=== PATIENT | female | born 1990 | race Hispanic/Latino ===

== ENCOUNTER 2016-06-09 10:00 | Emergency (ER) | payer OTHER, SELFPAY ==
[~2016-06-09 10:00] MED LIST: IBUP600T26 PO; PRENCAP9 PO; PRIL20CA PO
[2016-06-09] MEDS ORDERED: ONDANSETRON 4MG/2ML VIAL (J2405) As Ordered ONE (10:36)
[2016-06-09] MEDS ORDERED: KETOROLAC 30 MG/ML VIAL (J1885) As Ordered ONE (10:36)
[2016-06-09 10:53] LABS: BASO # 0.1 K/mm3 (0.0-0.2); BASO % 0.8 % (0.0-1.0); EOS # 0.5 K/mm3 (0.0-0.50); EOS % 4.2 % (0.0-3.0); LARGE UNSTAINED CELL # 0.2 K/mm3 (0.0-0.4); LARGE UNSTAINED CELL % 1.6 % (0.0-4.0); LYMPH % 24.8 % (24.0-44.0); MEAN CORPUSCULAR HEMOGLOBIN 25.9 pg (27.0-33.0); MEAN CORPUSCULAR HGB CONC 32.3 g/dl (32.0-36.5); MEAN CORPUSCULAR VOLUME 80.3 fl (80.0-96.0); MONO # 0.7 K/mm3 (0.0-0.8); MONO % 5.8 % (0.0-5.0); NEUTROPHILS % 62.7 % (36.0-66.0); PLATELET COUNT, AUTOMATED 302 k/mm3 (150-450); RED CELL DISTRIBUTION WIDTH 14.3 % (11.5-14.5); WHITE BLOOD COUNT 11.2 K/mm3 (4.0-10.0)
[2016-06-09 11:10] LABS: ALBUMIN 3.8 GM/DL (3.2-5.2); ALBUMIN/GLOBULIN RATIO 0.88 (1.00-1.93); ALKALINE PHOSPHATASE 91 U/L (45-117); ALT/SGPT 23 U/L (12-78); AMYLASE 52 U/L (25-115); ANION GAP 10 MEQ/L (8-16); AST/SGOT 12 U/L (15-37); BILIRUBIN,DIRECT < 0.1 MG/DL (0.0-0.2); BILIRUBIN,TOTAL 0.3 MG/DL (0.2-1.0); BLOOD UREA NITROGEN 12 MG/DL (7-18); CALCIUM LEVEL 8.9 MG/DL (8.5-10.1); CARBON DIOXIDE LEVEL 24 MEQ/L (21-32); CHLORIDE LEVEL 109 MEQ/L (98-107); CREATININE FOR GFR 0.85 MG/DL (0.55-1.02); GLOMERULAR FILTRATION RATE > 60.0 (>60); GLUCOSE, FASTING 92 MG/DL (70-105); SODIUM LEVEL 143 MEQ/L (136-145); TOTAL PROTEIN 8.1 GM/DL (6.4-8.2)
--- NOTE | 2016-06-09 11:16 | REP ---
CT ABDOMEN AND PELVIS WITHOUT IV OR ORAL CONTRAST: Renal stone protocol. HISTORY: Bilateral flank pain. FINDINGS: Digital preliminary data warehousing architect radiograph demonstrates an unremarkable bowel gas pattern. Umbilical jewelry is seen. Bilateral tubal ligation clamps are seen. Axial CT images demonstrate that the lung bases are clear. The liver and the spleen are normal in size and homogeneous in texture. Opaque gallstones are seen filling the lumen of the otherwise contracted appearing gallbladder. There is a small accessory splenule. No adrenal lesion is seen. No pancreatic abnormality is observed. Normal caliber aorta is seen. There is a retroaortic left renal vein. No hydronephrosis is seen. No intrarenal calculus is observed. A normal appendix is seen. Small and large intestinal bowel loops are unremarkable. The right tube ligation clamp appears in the right adnexa. The other tubal ligation clamp is seen directly anterior to the body of the uterus, between it and the urinary bladder. This has apparently migrated. No abdominal wall defect is seen. No bony destructive lesion is appreciated. No adnexal mass or pelvic mass is seen. No adenopathy noted. IMPRESSION: No urinary tract calculus or hydronephrosis. Cholelithiasis. Small contracted gallbladder filled with stones. Normal appendix. Status post bilateral tubal ligation. One of the two ligation clamps has migrated. Signed by Endy Diop MD 06/09/2016 11:21 A
--- NOTE | 2016-06-09 11:53 | EDDOCDS ---
Nurse's Notes [facility] Name: Elda Hector Age: 26 yrs Sex: Female : 1990 Arrival Date: 06/09/2016 Time: 10:00 Bed I4 / M4 Private MD: Diagnosis: Hematuria-Most likely passed kidney stone;Cholelithiasis;Lower abdominal pain, unspecified-with Flank Pain Presentation: 06/09 10:09 Presenting complaint: Patient states: lower back pain with radiation into rt lower [facility] abdomen for months, got worse 4 days ago. Acute neurological deficits are not present. Mechanism of Injury: No Mechanism of Injury. Adult Sepsis Screening: The patient does not have new or worsening altered mentation. Patient's respiratory rate is less than 22. Systolic blood pressure is greater than 100. Patient has a qSOFA score of 0- Negative Sepsis Screen. Suicide/Homicide risk assessment- the patient denies having any suicidal and/or homicidal ideations and does not present with any other emotional, behavioral or mental health complaints. Status: Patient is not a protective service specialist or dependent. Transition of care: patient was not received from another setting of care. 10:09 Acuity: DANY Level 3 [facility] 10:09 Method Of Arrival: Walkin/Carried/Asstd [facility] Triage Assessment: 10:11 General: Appears uncomfortable, well nourished, well groomed, Behavior is appropriate [facility] for age, pleasant. Pain: Location: low back area Pain currently is 7 out of 10 on a pain scale. Pain radiates to right lower quadrant. HIV screening NA for this visit Offered previously. Neurological: Level of Consciousness is awake, alert, Oriented to person, place, time. Respiratory: Airway is patent Respiratory effort is even, unlabored, Respiratory pattern is regular, symmetrical. GI: Reports lower abdominal pain, nausea, Pain is 7 out of 10 on a pain scale. : Reports pain in bilateral in lower back Pain is 7 out of 10 on a pain scale. Denies discharge, vaginal bleeding. Derm: Skin is pink, warm & dry. Musculoskeletal: No deficits noted. 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 none - PMHx: Depression; - PSHx: Breast Reduction; ; Tubal ligation; - Social history: Smoking status: Patient uses tobacco products, light tobacco smoker. No barriers to communication noted, The patient speaks fluent Luxembourgish. - Family history: Not pertinent. - : The pt / caregiver states he / she is not on anticoagulants. Home medication list is obtained from the patient. - Exposure Risk Screening:: None identified. Screenin:41 Screening information is obtained from the patient. Primary language is Luxembourgish. Fall jam1 risk: No risks identified. Assistance ADL's: requires no assistance with activities of daily living. Abuse/DV Screen: The patient / caregiver reports he/she is: not in a situation that causes fear, pain or injury. Nutritional screening: No deficits noted. Exposure Risk Screening: None identified. Advance Directives: Currently, there is no health care proxy. There is no active DNR order. There is no living will. There is no Power of Typesetting Machine Operator/Tender. Advance directive information has not previously been placed in an [facility] medical record. Further advance directive information is declined. home support is adequate. Assessment: 10:45 General: Appears in no apparent distress, Behavior is appropriate for age, cooperative, jo3 pleasant. Neurological: Level of Consciousness is awake, alert, Oriented to person, place, time. Cardiovascular: No deficits noted. Respiratory: Airway is patent Respiratory effort is even, unlabored, Respiratory pattern is. GI: Abdomen is obese, Bowel sounds present X 4 quads. Abd is soft and non tender X 4 quads. : Reports SUSHILA flank pain. 11:44 Reassessment: Patient appears in no apparent distress at this time. Patient states jo3 feeling better. Patient states symptoms have improved. General: Behavior is appropriate for age, cooperative, pleasant. Cardiovascular: No deficits noted. Respiratory: Airway is patent Respiratory effort is even, unlabored. Derm: Skin is pink, warm & dry. Vital Signs: 10:03 BP 144 / 87; Pulse 95; Resp 17; Temp 96.6(O); Pulse Ox 100% on R/A; Weight 104.33 kg lr2 (R); Height 5 ft. 1 in. (154.94 cm) (R); Pain 8/10; 11:38 BP 123 / 65; Pulse 68; Resp 18; Temp 97.2; Pulse Ox 99% ; Pain 0/10; jam1 10:03 Body Mass Index 43.46 (104.33 kg, 154.94 cm) lr2 Vitals: 10:11 Log In Time: June 09, 2016 at 10:00. [facility] ED Course: 10:02 Patient visited by Jaye Sandoval. lr2 10:02 Patient moved to Waiting lr2 10:10 Patient moved to Pre RCE lr2 10:11 Triage Initiated [facility] 10:13 Patient moved to Triage 1 [facility] 10:17 Hermelinda Hernandez PA-C is PHCP. ef1 10:17 Dominique Edouard MD is Attending Physician. ef1 10:18 Patient visited by Hremelinda Hernandez PA-C. ef1 10:29 Patient moved to I4 / M4 srm 10:35 Pt greeted and oriented to ED. Patient advised of names of staff involved in care, jam1 location of call nicholson, wait times and NPO status. Patient has correct armband on for positive identification. Placed in gown. Bed in low position. Call light in reach. Side rails up X 1. Door closed. 10:40 Inserted saline lock: 18 gauge in right antecubital area. Labs drawn. (by ED staff). jo3 Sent per order to lab. 10:44 Amylase Sent. jo3 10:44 Basic Metabolic Profile Sent. jo3 10:44 CBC with Diff Sent. jo3 10:44 Lipase Sent. jo3 10:44 Liver Profile Sent. jo3 10:44 Urinalysis Sent. jo3 10:44 Urine Culture Sent. jo3 10:54 Patient visited by Hermelinda Hernandez PA-C. ef1 11:21 CT ABD & PELVIS: No Contrast Returned. EDMS 11:25 [facility] Payment Agreement was scanned into [employer] and attached to record. lg 11:31 Patient visited by Hermelinda Henrandez PA-C. ef1 11:39 [facility] is Referral Physician. ef1 11:39 [facility] is Referral Physician. ef1 11:39 [facility] DO is Referral Physician. ef1 11:51 The patient / caregiver is instructed regarding the plan of care and ED course. jo3 11:51 Discontinued IV lock intact, bleeding controlled, pressure dressing applied, No jo3 redness/swelling at site. No procedures done that require assistance. Administered Medications: 10:42 Drug: NS 0.9% 1000 ml [sodium chloride 0.9 % injection solution] Route: IV; Rate: pml bolus; Site: right antecubital; 10:42 Drug: Ondansetron 4 mg [ondansetron HCl 2 mg/mL intravenous solution (2 mL)] Route: pml IVP; Site: right antecubital; 10:42 Drug: ketorolac 30 mg [ketorolac 30 mg/mL (1 mL) injection solution (1 mL)] Route: IVP; pml Site: right antecubital; Point of Care Testing: Urine : 10:43 hCG Reading: Negative; Control Reading: Positive; pml Ranges: Order Results: Lab Order: Amylase; SPEC'M 06/09/16 10:40 Test: AMYLASE; Value: 52; Range: 25-115; Units: U/L; Status: F Lab Order: Basic Metabolic Profile; SPEC'M 06/09/16 10:40 Test: GLUCOSE, FASTING; Value: 92; Range: 70-105; Units: MG/DL; Status: F Test: BLOOD UREA NITROGEN; Value: 12; Range: 7-18; Units: MG/DL; Status: F Test: CREATININE FOR GFR; Value: 0.85; Range: 0.55-1.02; Units: MG/DL; Status: F Test: GLOMERULAR FILTRATION RATE; Value: > 60.0; Range: >60; Status: F Test: SODIUM LEVEL; Value: 143; Range: 136-145; Units: MEQ/L; Status: F Test: POTASSIUM SERUM; Value: 4.0; Range: 3.5-5.1; Units: MEQ/L; Status: F Test: CHLORIDE LEVEL; Value: 109; Range: 98-107; Abnormal: Above high normal; Units: MEQ/L; Status: F Test: CARBON DIOXIDE LEVEL; Value: 24; Range: 21-32; Units: MEQ/L; Status: F Test: ANION GAP; Value: 10; Range: 8-16; Units: MEQ/L; Status: F Test: CALCIUM LEVEL; Value: 8.9; Range: 8.5-10.1; Units: MG/DL; Status: F Test Note: ; Units are mL/min/1.73 m2 Chronic Kidney Disease Staging per NKF: Stage I & II GFR >=60 Normal to Mildly Decreased Stage III GFR 30-59 Moderately Decreased Stage IV GFR 15-29 Severely Decreased Stage V GFR <15 Very Little GFR Left ESRD GFR <15 on PERINATAL SOCIAL WORKER Lab Order: CBC with Diff; SPEC'M 06/09/16 10:40 Test: WHITE BLOOD COUNT; Value: 11.2; Range: 4.0-10.0; Abnormal: Above high normal; Units: K/mm3; Status: F Test: RED BLOOD COUNT; Value: 4.50; Range: 4.00-5.40; Units: M/mm3; Status: F Test: HEMOGLOBIN; Value: 11.7; Range: 12.0-16.0; Abnormal: Below low normal; Units: g/dl; Status: F Test: HEMATOCRIT; Value: 36.1; Range: 36.0-47.0; Units: %; Status: F Test: MEAN CORPUSCULAR VOLUME; Value: 80.3; Range: 80.0-96.0; Units: fl; Status: F Test: MEAN CORPUSCULAR HEMOGLOBIN; Value: 25.9; Range: 27.0-33.0; Abnormal: Below low normal; Units: pg; Status: F Test: MEAN CORPUSCULAR HGB CONC; Value: 32.3; Range: 32.0-36.5; Units: g/dl; Status: F Test: RED CELL DISTRIBUTION WIDTH; Value: 14.3; Range: 11.5-14.5; Units: %; Status: F Test: PLATELET COUNT, AUTOMATED; Value: 302; Range: 150-450; Units: k/mm3; Status: F Test: NEUTROPHILS %; Value: 62.7; Range: 36.0-66.0; Units: %; Status: F Test: LYMPH %; Value: 24.8; Range: 24.0-44.0; Units: %; Status: F Test: MONO %; Value: 5.8; Range: 0.0-5.0; Abnormal: Above high normal; Units: %; Status: F Test: EOS %; Value: 4.2; Range: 0.0-3.0; Abnormal: Above high normal; Units: %; Status: F Test: BASO %; Value: 0.8; Range: 0.0-1.0; Units: %; Status: F Test: LARGE UNSTAINED CELL %; Value: 1.6; Range: 0.0-4.0; Units: %; Status: F Test: NEUTROPHILS #; Value: 7.0; Range: 1.8-7.7; Units: K/mm3; Status: F Test: LYMPH #; Value: 3.0; Range: 1.5-6.5; Units: K/mm3; Status: F Test: MONO #; Value: 0.7; Range: 0.0-0.8; Units: K/mm3; Status: F Test: EOS #; Value: 0.5; Range: 0.0-0.50; Units: K/mm3; Status: F Test: BASO #; Value: 0.1; Range: 0.0-0.2; Units: K/mm3; Status: F Test: LARGE UNSTAINED CELL #; Value: 0.2; Range: 0.0-0.4; Units: K/mm3; Status: F Lab Order: Lipase; SPEC'M 06/09/16 10:40 Test: LIPASE; Value: 206; Range: 73-393; Units: U/L; Status: F Lab Order: Liver Profile; SPEC'M 06/09/16 10:40 Test: AST/SGOT; Value: 12; Range: 15-37; Abnormal: Below low normal; Units: U/L; Status: F Test: ALT/SGPT; Value: 23; Range: 12-78; Units: U/L; Status: F Test: ALKALINE PHOSPHATASE; Value: 91; Range: 45-117; Units: U/L; Status: F Test: BILIRUBIN,TOTAL; Value: 0.3; Range: 0.2-1.0; Units: MG/DL; Status: F Test: BILIRUBIN,DIRECT; Value: < 0.1; Range: 0.0-0.2; Units: MG/DL; Status: F Test: TOTAL PROTEIN; Value: 8.1; Range: 6.4-8.2; Units: GM/DL; Status: F Test: ALBUMIN; Value: 3.8; Range: 3.2-5.2; Units: GM/DL; Status: F Test: ALBUMIN/GLOBULIN RATIO; Value: 0.88; Range: 1.00-1.93; Abnormal: Below low normal; Status: F Lab Order: Urinalysis; SPEC'M 06/09/16 10:40 Test: APPEARANCE, URINE; Value: CLOUDY; Range: CLEAR; Abnormal: Above high normal; Status: F Test: COLOR, URINE; Value: YELLOW; Range: YELLOW; Status: F Test: PH,URINE; Value: 5.0; Range: 5.0-9.0; Units: UNITS; Status: F Test: SPECIFIC GRAVITY URINE AUTO; Value: 1.024; Range: 1.002-1.035; Status: F Test: PROTEIN, URINE AUTO; Value: NEGATIVE; Range: NEGATIVE; Units: mg/dL; Status: F Test: GLUCOSE, URINE (UA) AUTO; Value: NEGATIVE; Range: NEGATIVE; Units: mg/dL; Status: F Test: KETONE, URINE AUTO; Value: NEGATIVE; Range: NEGATIVE; Units: mg/dL; Status: F Test: UROBILINOGEN, URINE AUTO; Value: 0.2; Range: 0.0-2.0; Units: mg/dL; Status: F Test: BILIRUBIN, URINE AUTO; Value: NEGATIVE; Range: NEGATIVE; Status: F Test: NITRITE, URINE AUTO; Value: NEGATIVE; Range: NEGATIVE; Status: F Test: LEUKOCYTE ESTERASE, URINE AUTO; Value: NEGATIVE; Range: NEGATIVE; Status: F Test: BLOOD, URINE BLOOD; Value: NEGATIVE; Range: NEGATIVE; Status: F Test: WBC, URINE AUTO; Value: 2; Range: 0-3; Units: /HPF; Status: F Test: RBC, URINE AUTO; Value: 4; Range: 0-3; Abnormal: Above high normal; Units: /HPF; Status: F Test: BACTERIA, URINE AUTO; Value: NEGATIVE; Range: NEGATIVE; Status: F Test: SQUAMOUS EPITHELIAL CELL UR AU; Value: 17; Range: 0-6; Units: /HPF; Status: F Test: MUCUS, URINE; Value: SMALL; Range: NEGATIVE; Status: F Test: HYALINE CAST, URINE AUTO; Value: 0; Range: 0-1; Units: /LPF; Status: F Radiology Order: CT ABD & PELVIS: No Contrast Test: CT ABD & PELVIS: No Contrast REASON FOR EXAMINATION: Renal colic; CT ABDOMEN AND PELVIS WITHOUT IV OR ORAL CONTRAST: Renal stone protocol.; ; HISTORY: Bilateral flank pain.; ; FINDINGS: Digital preliminary parts cleaner radiograph demonstrates an unremarkable; bowel gas pattern. Umbilical jewelry is seen. Bilateral tubal ligation clamps; are seen.; ; Axial CT images demonstrate that the lung bases are clear. The liver and the; spleen are normal in size and homogeneous in texture. Opaque gallstones are seen; filling the lumen of the otherwise contracted appearing gallbladder. There is a; small accessory splenule. No adrenal lesion is seen. No pancreatic abnormality; is observed. Normal caliber aorta is seen. There is a retroaortic left renal; vein. No hydronephrosis is seen. No intrarenal calculus is observed. A normal; appendix is seen. Small and large intestinal bowel loops are unremarkable. The; right tube ligation clamp appears in the right adnexa. The other tubal ligation; clamp is seen directly anterior to the body of the uterus, between it and the; urinary bladder. This has apparently migrated. No abdominal wall defect is; seen. No bony destructive lesion is appreciated. No adnexal mass or pelvic mass; is seen. No adenopathy noted.; ; IMPRESSION:; No urinary tract calculus or hydronephrosis. Cholelithiasis. Small contracted; gallbladder filled with stones. Normal appendix. Status post bilateral tubal; ligation. One of the two ligation clamps has migrated.; ; ; ; Unreviewed; Outcome: 11:39 Discharge ordered by Provider. ef1 11:52 Discharge Assessment: Patient awake, alert and oriented x 3. No cognitive and/or jo3 functional deficits noted. Patient verbalized understanding of disposition instructions. patient administered narcotics - no. The following High Risk Discharge criteria are identified: None. Discharged to home ambulatory. Condition: stable Condition: improved. Discharge instructions given to patient, Instructed on discharge instructions, follow up and referral plans. medication usage, Demonstrated understanding of instructions, medications, Pt was receptive of discharge instructions/ teaching. Prescriptions given X 3. CT Study completed. Property sent home with patient. 11:52 Patient left the ED. jo3 Signatures: Dispatcher [employer] EDMS Taty De La Cruz RN RN kpj Michelson, Staci, RN RN srm Murphy, Jane, KRZYSZTOF SOIL CONSERVATION AIDE jam1 Yas Hong, Reg Reg lg Leatha Varela RN RN jo3 Hermelinda Hernandez, PA-C PA-C ef1 Henry,Asia,RN RN pml Ross, Jaye lr2 MTDD
--- NOTE | 2016-06-09 11:53 | EDDOCDS ---
Physician Documentation [facility] Name: Elda Hector Age: 26 yrs Sex: Female : 1990 Arrival Date: 06/09/2016 Time: 10:00 Bed I4 / M4 Private MD: Disposition: 06/09/16 11:39 Discharged to Home/Self Care. Impression: Hematuria - Most likely passed kidney stone, Cholelithiasis, Lower abdominal pain, unspecified - with Flank Pain. - Condition is Stable. - Discharge Instructions: Hematuria, Adult, Kidney Stones, [id number], Cholelithiasis, Efio-[id number], Abdominal Pain, Adult, Kxox-[id number], Flank Pain, [id number]-[id number]. - Prescriptions for Flomax 0.4 mg Oral Capsule, Sust. Release 24 hr - take 1 capsule by ORAL route once daily 1/2 hour following the same meal each day; 30 capsule. ZOFRAN ODT 4 mg - dissolve 1 tablet by ORAL route 4 times per day As needed do not chew, do not swallow whole; 10 tablet. ketorolac 10 mg Oral Tablet - take 1 tablet by ORAL route 3 times per day As needed MDD- 30mg. Up to 5 days total use.; 15 tablet. - Medication Reconciliation, Local Pharmacy Hours, Referral List Call for Appointment form. - [facility] ; When: 1 - 2 days; Reason: Recheck today's complaints, Continuance of care. Follow up: [facility]; When: Call to arrange an appointment; Reason: Further diagnostic work-up, Recheck today's complaints, Continuance of care. Follow up: [facility]; When: Call to arrange an appointment; Reason: Further diagnostic work-up, Recheck today's complaints, Continuance of care. Follow up: Emergency Department; Reason: Worsening of conditions. - Problem is new. - Symptoms have improved. Historical: - Allergies: Depakote (Rash); - Home Meds: 1. none - PMHx: Depression; - PSHx: Breast Reduction; ; Tubal ligation; - Social history: Smoking status: Patient uses tobacco products, light tobacco smoker. No barriers to communication noted, The patient speaks fluent Romansh. - Family history: Not pertinent. - : The pt / caregiver states he / she is not on anticoagulants. Home medication list is obtained from the patient. - Exposure Risk Screening:: None identified. LAUNCHMAN: 06/09 10:11 LMP 05/20/2016 [facility] Vital Signs: 10:03 BP 144 / 87; Pulse 95; Resp 17; Temp 96.6(O); Pulse Ox 100% on R/A; Weight 104.33 kg / lr2 230.01 lbs (R); Height 5 ft. 1 in. (154.94 cm) (R); Pain 8/10; 11:38 BP 123 / 65; Pulse 68; Resp 18; Temp 97.2; Pulse Ox 99% ; Pain 0/10; jam1 10:03 Body Mass Index 43.46 (104.33 kg, 154.94 cm) lr2 MDM: 10:25 NS 0.9% 1000 ml IV at bolus once ordered. ef1 10:25 Ondansetron 4 mg IVP once ordered. ef1 10:25 ketorolac 30 mg IVP once ordered. ef1 10:25 IV Saline Lock ordered. ef1 10:25 Undress patient appropriately for examination ordered. ef1 10:26 Amylase Ordered. EDMS 10:26 Basic Metabolic Profile Ordered. EDMS 10:26 CBC with Diff Ordered. EDMS 10:26 Lipase Ordered. EDMS 10:26 Liver Profile Ordered. EDMS 10:26 Urinalysis Ordered. EDMS 10:26 Urine Culture Ordered. EDMS 10:26 CT ABD & PELVIS: No Contrast Ordered. EDMS 10:26 NOTHING BY MOUTH+DIET ordered. EDMS 10:29 Financial registration complete. lg 10:37 UCG by Nursing ordered. ef1 11:25 [id number] Payment Agreement was scanned into [employer] and attached to record. lg 11:33 Basic Metabolic Profile Reviewed. ef1 11:33 CBC with Diff Reviewed. ef1 11:33 Liver Profile Reviewed. ef1 11:33 Urinalysis Reviewed. ef1 11:33 Amylase Reviewed. ef1 11:33 Lipase Reviewed. ef1 11:33 CT ABD & PELVIS: No Contrast Reviewed. ef1 Point of Care Testing: Urine : 10:43 hCG Reading: Negative; Control Reading: Positive; pml Ranges: Administered Medications: 10:42 Drug: NS 0.9% 1000 ml [sodium chloride 0.9 % injection solution] Route: IV; Rate: pml bolus; Site: right antecubital; 10:42 Drug: Ondansetron 4 mg [ondansetron HCl 2 mg/mL intravenous solution (2 mL)] Route: pml IVP; Site: right antecubital; 10:42 Drug: ketorolac 30 mg [ketorolac 30 mg/mL (1 mL) injection solution (1 mL)] Route: IVP; pml Site: right antecubital; Signatures: Dispatcher [employer] EDTaty Gleason RN RN Yas Johnson, Ramon Reg Leatha MadridRN RN jo3 Hermelinda Hernandez, PA-C PA-C ef1 Asia Figueroa RN pml The chart was reviewed and I authenticate all verbal orders and agree with the evaluation and treatment provided.Attachments: 11:25 [facility] Payment Agreement lg MTDD
--- NOTE | 2016-06-11 12:54 | EDDOCDS ---
Physician Documentation [facility] Name: Elda Hector Age: 26 yrs Sex: Female : 1990 Arrival Date: 06/09/2016 Time: 10:00 Bed I4 / M4 Private MD: Disposition: 06/09/16 11:39 Discharged to Home/Self Care. Impression: Hematuria - Most likely passed kidney stone, Cholelithiasis, Lower abdominal pain, unspecified - with Flank Pain. - Condition is Stable. - Discharge Instructions: Hematuria, Adult, Kidney Stones, Uiif-[id number], Cholelithiasis, Sawz-ot-Klen, Abdominal Pain, Adult, Abzy-ky-Fxbk, Flank Pain, Yttl-sa-Fatp. - Prescriptions for Flomax 0.4 mg Oral Capsule, Sust. Release 24 hr - take 1 capsule by ORAL route once daily 1/2 hour following the same meal each day; 30 capsule. ZOFRAN ODT 4 mg - dissolve 1 tablet by ORAL route 4 times per day As needed do not chew, do not swallow whole; 10 tablet. ketorolac 10 mg Oral Tablet - take 1 tablet by ORAL route 3 times per day As needed MDD- 30mg. Up to 5 days total use.; 15 tablet. - Medication Reconciliation, Local Pharmacy Hours, Referral List Call for Appointment form. - [facility] ; When: 1 - 2 days; Reason: Recheck today's complaints, Continuance of care. Follow up: [facility]; When: Call to arrange an appointment; Reason: Further diagnostic work-up, Recheck today's complaints, Continuance of care. Follow up: [facility]; When: Call to arrange an appointment; Reason: Further diagnostic work-up, Recheck today's complaints, Continuance of care. Follow up: Emergency Department; Reason: Worsening of conditions. - Problem is new. - Symptoms have improved. Historical: - Allergies: Depakote (Rash); - Home Meds: 1. none - PMHx: Depression; - PSHx: Breast Reduction; ; Tubal ligation; - Social history: Smoking status: Patient uses tobacco products, light tobacco smoker. No barriers to communication noted, The patient speaks fluent Belarusian. - Family history: Not pertinent. - : The pt / caregiver states he / she is not on anticoagulants. Home medication list is obtained from the patient. - Exposure Risk Screening:: None identified. 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 1 in. (154.94 cm) (R); Pain 8/10; 11:10 Pain 0/10; jo3 11:38 BP 123 / 65; Pulse 68; Resp 18; Temp 97.2; Pulse Ox 99% ; Pain 0/10; jam1 10:03 Body Mass Index 43.46 (104.33 kg, 154.94 cm) lr2 MDM: 10:25 NS 0.9% 1000 ml IV at bolus once ordered. ef1 10:25 Ondansetron 4 mg IVP once ordered. ef1 10:25 ketorolac 30 mg IVP once ordered. ef1 10:25 IV Saline Lock ordered. ef1 10:25 Undress patient appropriately for examination ordered. ef1 10:26 Amylase Ordered. EDMS 10:26 Basic Metabolic Profile Ordered. EDMS 10:26 CBC with Diff Ordered. EDMS 10:26 Lipase Ordered. EDMS 10:26 Liver Profile Ordered. EDMS 10:26 Urinalysis Ordered. EDMS 10:26 Urine Culture Ordered. EDMS 10:26 CT ABD & PELVIS: No Contrast Ordered. EDMS 10:26 NOTHING BY MOUTH+DIET ordered. EDMS 10:29 Financial registration complete. lg 10:37 UCG by Nursing ordered. ef1 11:25 [facility] Payment Agreement was scanned into [employer] and attached to record. lg 11:33 Basic Metabolic Profile Reviewed. ef1 11:33 CBC with Diff Reviewed. ef1 11:33 Liver Profile Reviewed. ef1 11:33 Urinalysis Reviewed. ef1 11:33 Amylase Reviewed. ef1 11:33 Lipase Reviewed. ef1 11:33 CT ABD & PELVIS: No Contrast Reviewed. ef1 17:38 T-Sheet-- Draft Copy was scanned into [employer] and attached to record. klr Point of Care Testing: Urine : 10:43 hCG Reading: Negative; Control Reading: Positive; pml Ranges: Administered Medications: 10:42 Drug: NS 0.9% 1000 ml [sodium chloride 0.9 % injection solution] Route: IV; Rate: pml bolus; Site: right antecubital; 11:55 Follow up: IV Status: Completed infusion jo3 10:42 Drug: Ondansetron 4 mg [ondansetron HCl 2 mg/mL intravenous solution (2 mL)] Route: pml IVP; Site: right antecubital; 10:42 Drug: ketorolac 30 mg [ketorolac 30 mg/mL (1 mL) injection solution (1 mL)] Route: IVP; pml Site: right antecubital; 11:10 Follow up: Pain 0/10 Adult jo3 Signatures: Dispatcher [employer] EDTaty Gleason RN RN Yas Johnson, Ramon Reg Leatha Madrid RN RN jo3 Hermelinda Hernandez, PAZulmaC PAZulmaC Yany Alonzo Paulina RN pml The chart was reviewed and I authenticate all verbal orders and agree with the evaluation and treatment provided.Attachments: 11:25 [facility] Payment Agreement lg 17:38 T-Sheet-- Draft Copy klr Chart Complete [facility]
--- NOTE | 2016-06-11 12:54 | EDDOCDS ---
Nurse's Notes [facility] Name: Elda Hector Age: 26 yrs Sex: Female : 1990 Arrival Date: 06/09/2016 Time: 10:00 Bed I4 / M4 Private MD: Diagnosis: Hematuria-Most likely passed kidney stone;Cholelithiasis;Lower abdominal pain, unspecified-with Flank Pain Presentation: 06/09 10:09 Presenting complaint: Patient states: lower back pain with radiation into rt lower [facility] abdomen for months, got worse 4 days ago. Acute neurological deficits are not present. Mechanism of Injury: No Mechanism of Injury. Adult Sepsis Screening: The patient does not have new or worsening altered mentation. Patient's respiratory rate is less than 22. Systolic blood pressure is greater than 100. Patient has a qSOFA score of 0- Negative Sepsis Screen. Suicide/Homicide risk assessment- the patient denies having any suicidal and/or homicidal ideations and does not present with any other emotional, behavioral or mental health complaints. Status: Patient is not a human service coordinator or dependent. Transition of care: patient was not received from another setting of care. 10:09 Acuity: DANY Level 3 [facility] 10:09 Method Of Arrival: Walkin/Carried/Asstd [facility] Triage Assessment: 10:11 General: Appears uncomfortable, well nourished, well groomed, Behavior is appropriate [facility] for age, pleasant. Pain: Location: low back area Pain currently is 7 out of 10 on a pain scale. Pain radiates to right lower quadrant. HIV screening NA for this visit Offered previously. Neurological: Level of Consciousness is awake, alert, Oriented to person, place, time. Respiratory: Airway is patent Respiratory effort is even, unlabored, Respiratory pattern is regular, symmetrical. GI: Reports lower abdominal pain, nausea, Pain is 7 out of 10 on a pain scale. : Reports pain in bilateral in lower back Pain is 7 out of 10 on a pain scale. Denies discharge, vaginal bleeding. Derm: Skin is pink, warm & dry. Musculoskeletal: No deficits noted. 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 none - PMHx: Depression; - PSHx: Breast Reduction; ; Tubal ligation; - Social history: Smoking status: Patient uses tobacco products, light tobacco smoker. No barriers to communication noted, The patient speaks fluent Belarusian. - Family history: Not pertinent. - : The pt / caregiver states he / she is not on anticoagulants. Home medication list is obtained from the patient. - Exposure Risk Screening:: None identified. Screenin:41 Screening information is obtained from the patient. Primary language is Belarusian. Fall jam1 risk: No risks identified. Assistance ADL's: requires no assistance with activities of daily living. Abuse/DV Screen: The patient / caregiver reports he/she is: not in a situation that causes fear, pain or injury. Nutritional screening: No deficits noted. Exposure Risk Screening: None identified. Advance Directives: Currently, there is no health care proxy. There is no active DNR order. There is no living will. There is no Power of Adjuster Leader. Advance directive information has not previously been placed in an [facility] medical record. Further advance directive information is declined. home support is adequate. Assessment: 10:45 General: Appears in no apparent distress, Behavior is appropriate for age, cooperative, jo3 pleasant. Neurological: Level of Consciousness is awake, alert, Oriented to person, place, time. Cardiovascular: No deficits noted. Respiratory: Airway is patent Respiratory effort is even, unlabored, Respiratory pattern is. GI: Abdomen is obese, Bowel sounds present X 4 quads. Abd is soft and non tender X 4 quads. : Reports SUSHILA flank pain. 11:44 Reassessment: Patient appears in no apparent distress at this time. Patient states jo3 feeling better. Patient states symptoms have improved. General: Behavior is appropriate for age, cooperative, pleasant. Cardiovascular: No deficits noted. Respiratory: Airway is patent Respiratory effort is even, unlabored. Derm: Skin is pink, warm & dry. Vital Signs: 10:03 BP 144 / 87; Pulse 95; Resp 17; Temp 96.6(O); Pulse Ox 100% on R/A; Weight 104.33 kg lr2 (R); Height 5 ft. 1 in. (154.94 cm) (R); Pain 8/10; 11:10 Pain 0/10; jo3 11:38 BP 123 / 65; Pulse 68; Resp 18; Temp 97.2; Pulse Ox 99% ; Pain 0/10; jam1 10:03 Body Mass Index 43.46 (104.33 kg, 154.94 cm) lr2 Vitals: 10:11 Log In Time: June 09, 2016 at 10:00. [facility] ED Course: 10:02 Patient visited by Jaye Sandoval. lr2 10:02 Patient moved to Waiting lr2 10:10 Patient moved to Pre RCE lr2 10:11 Triage Initiated [facility] 10:13 Patient moved to Triage 1 [facility] 10:17 Hermelinda Hernandez PA-C is PHCP. ef1 10:17 Dominique Edouard MD is Attending Physician. ef1 10:18 Patient visited by Hermelinda Hernandez PA-C. ef1 10:29 Patient moved to I4 / M4 [facility] 10:35 Pt greeted and oriented to ED. Patient advised of names of staff involved in care, [facility] location of call nicholson, wait times and NPO status. Patient has correct armband on for positive identification. Placed in gown. Bed in low position. Call light in reach. Side rails up X 1. Door closed. 10:40 Inserted saline lock: 18 gauge in right antecubital area. Labs drawn. (by ED staff). jo3 Sent per order to lab. 10:44 Amylase Sent. jo3 10:44 Basic Metabolic Profile Sent. jo3 10:44 CBC with Diff Sent. jo3 10:44 Lipase Sent. jo3 10:44 Liver Profile Sent. jo3 10:44 Urinalysis Sent. jo3 10:44 Urine Culture Sent. jo3 10:54 Patient visited by Hermelinda Hernandez PA-C. ef1 11:21 CT ABD & PELVIS: No Contrast Returned. EDMS 11:25 [facility] Payment Agreement was scanned into [employer] and attached to record. lg 11:31 Patient visited by Hermelinda Hernandez PA-C. ef1 11:39 [facility] is Referral Physician. ef1 11:39 [facility] is Referral Physician. ef1 11:39 [facility] DO is Referral Physician. ef1 11:51 The patient / caregiver is instructed regarding the plan of care and ED course. jo3 11:51 Discontinued IV lock intact, bleeding controlled, pressure dressing applied, No jo3 redness/swelling at site. No procedures done that require assistance. 12:00 CT ABD & PELVIS: No Contrast Returned. EDMS 17:38 T-Sheet-- Draft Copy was scanned into [employer] and attached to record. klr Administered Medications: 10:42 Drug: NS 0.9% 1000 ml [sodium chloride 0.9 % injection solution] Route: IV; Rate: pml bolus; Site: right antecubital; 11:55 Follow up: IV Status: Completed infusion jo3 10:42 Drug: Ondansetron 4 mg [ondansetron HCl 2 mg/mL intravenous solution (2 mL)] Route: pml IVP; Site: right antecubital; 10:42 Drug: ketorolac 30 mg [ketorolac 30 mg/mL (1 mL) injection solution (1 mL)] Route: IVP; pml Site: right antecubital; 11:10 Follow up: Pain 0/10 Adult jo3 Point of Care Testing: Urine : 10:43 hCG Reading: Negative; Control Reading: Positive; pml Ranges: Order Results: Lab Order: Amylase; SPEC'M 06/09/16 10:40 Test: AMYLASE; Value: 52; Range: 25-115; Units: U/L; Status: F Lab Order: Basic Metabolic Profile; SPEC'M 06/09/16 10:40 Test: GLUCOSE, FASTING; Value: 92; Range: 70-105; Units: MG/DL; Status: F Test: BLOOD UREA NITROGEN; Value: 12; Range: 7-18; Units: MG/DL; Status: F Test: CREATININE FOR GFR; Value: 0.85; Range: 0.55-1.02; Units: MG/DL; Status: F Test: GLOMERULAR FILTRATION RATE; Value: > 60.0; Range: >60; Status: F Test: SODIUM LEVEL; Value: 143; Range: 136-145; Units: MEQ/L; Status: F Test: POTASSIUM SERUM; Value: 4.0; Range: 3.5-5.1; Units: MEQ/L; Status: F Test: CHLORIDE LEVEL; Value: 109; Range: 98-107; Abnormal: Above high normal; Units: MEQ/L; Status: F Test: CARBON DIOXIDE LEVEL; Value: 24; Range: 21-32; Units: MEQ/L; Status: F Test: ANION GAP; Value: 10; Range: 8-16; Units: MEQ/L; Status: F Test: CALCIUM LEVEL; Value: 8.9; Range: 8.5-10.1; Units: MG/DL; Status: F Test Note: ; Units are mL/min/1.73 m2 Chronic Kidney Disease Staging per NKF: Stage I & II GFR >=60 Normal to Mildly Decreased Stage III GFR 30-59 Moderately Decreased Stage IV GFR 15-29 Severely Decreased Stage V GFR <15 Very Little GFR Left ESRD GFR <15 on HELP DESK ADMINISTRATOR Lab Order: CBC with Diff; SPEC'M 06/09/16 10:40 Test: WHITE BLOOD COUNT; Value: 11.2; Range: 4.0-10.0; Abnormal: Above high normal; Units: K/mm3; Status: F Test: RED BLOOD COUNT; Value: 4.50; Range: 4.00-5.40; Units: M/mm3; Status: F Test: HEMOGLOBIN; Value: 11.7; Range: 12.0-16.0; Abnormal: Below low normal; Units: g/dl; Status: F Test: HEMATOCRIT; Value: 36.1; Range: 36.0-47.0; Units: %; Status: F Test: MEAN CORPUSCULAR VOLUME; Value: 80.3; Range: 80.0-96.0; Units: fl; Status: F Test: MEAN CORPUSCULAR HEMOGLOBIN; Value: 25.9; Range: 27.0-33.0; Abnormal: Below low normal; Units: pg; Status: F Test: MEAN CORPUSCULAR HGB CONC; Value: 32.3; Range: 32.0-36.5; Units: g/dl; Status: F Test: RED CELL DISTRIBUTION WIDTH; Value: 14.3; Range: 11.5-14.5; Units: %; Status: F Test: PLATELET COUNT, AUTOMATED; Value: 302; Range: 150-450; Units: k/mm3; Status: F Test: NEUTROPHILS %; Value: 62.7; Range: 36.0-66.0; Units: %; Status: F Test: LYMPH %; Value: 24.8; Range: 24.0-44.0; Units: %; Status: F Test: MONO %; Value: 5.8; Range: 0.0-5.0; Abnormal: Above high normal; Units: %; Status: F Test: EOS %; Value: 4.2; Range: 0.0-3.0; Abnormal: Above high normal; Units: %; Status: F Test: BASO %; Value: 0.8; Range: 0.0-1.0; Units: %; Status: F Test: LARGE UNSTAINED CELL %; Value: 1.6; Range: 0.0-4.0; Units: %; Status: F Test: NEUTROPHILS #; Value: 7.0; Range: 1.8-7.7; Units: K/mm3; Status: F Test: LYMPH #; Value: 3.0; Range: 1.5-6.5; Units: K/mm3; Status: F Test: MONO #; Value: 0.7; Range: 0.0-0.8; Units: K/mm3; Status: F Test: EOS #; Value: 0.5; Range: 0.0-0.50; Units: K/mm3; Status: F Test: BASO #; Value: 0.1; Range: 0.0-0.2; Units: K/mm3; Status: F Test: LARGE UNSTAINED CELL #; Value: 0.2; Range: 0.0-0.4; Units: K/mm3; Status: F Lab Order: Lipase; [facility] 06/09/16 10:40 Test: LIPASE; Value: 206; Range: 73-393; Units: U/L; Status: F Lab Order: Liver Profile; [facility] 06/09/16 10:40 Test: AST/SGOT; Value: 12; Range: 15-37; Abnormal: Below low normal; Units: U/L; Status: F Test: ALT/SGPT; Value: 23; Range: 12-78; Units: U/L; Status: F Test: ALKALINE PHOSPHATASE; Value: 91; Range: 45-117; Units: U/L; Status: F Test: BILIRUBIN,TOTAL; Value: 0.3; Range: 0.2-1.0; Units: MG/DL; Status: F Test: BILIRUBIN,DIRECT; Value: < 0.1; Range: 0.0-0.2; Units: MG/DL; Status: F Test: TOTAL PROTEIN; Value: 8.1; Range: 6.4-8.2; Units: GM/DL; Status: F Test: ALBUMIN; Value: 3.8; Range: 3.2-5.2; Units: GM/DL; Status: F Test: ALBUMIN/GLOBULIN RATIO; Value: 0.88; Range: 1.00-1.93; Abnormal: Below low normal; Status: F Lab Order: Urinalysis; SPEC'M 06/09/16 10:40 Test: APPEARANCE, URINE; Value: CLOUDY; Range: CLEAR; Abnormal: Above high normal; Status: F Test: COLOR, URINE; Value: YELLOW; Range: YELLOW; Status: F Test: PH,URINE; Value: 5.0; Range: 5.0-9.0; Units: UNITS; Status: F Test: SPECIFIC GRAVITY URINE AUTO; Value: 1.024; Range: 1.002-1.035; Status: F Test: PROTEIN, URINE AUTO; Value: NEGATIVE; Range: NEGATIVE; Units: mg/dL; Status: F Test: GLUCOSE, URINE (UA) AUTO; Value: NEGATIVE; Range: NEGATIVE; Units: mg/dL; Status: F Test: KETONE, URINE AUTO; Value: NEGATIVE; Range: NEGATIVE; Units: mg/dL; Status: F Test: UROBILINOGEN, URINE AUTO; Value: 0.2; Range: 0.0-2.0; Units: mg/dL; Status: F Test: BILIRUBIN, URINE AUTO; Value: NEGATIVE; Range: NEGATIVE; Status: F Test: NITRITE, URINE AUTO; Value: NEGATIVE; Range: NEGATIVE; Status: F Test: LEUKOCYTE ESTERASE, URINE AUTO; Value: NEGATIVE; Range: NEGATIVE; Status: F Test: BLOOD, URINE BLOOD; Value: NEGATIVE; Range: NEGATIVE; Status: F Test: WBC, URINE AUTO; Value: 2; Range: 0-3; Units: /HPF; Status: F Test: RBC, URINE AUTO; Value: 4; Range: 0-3; Abnormal: Above high normal; Units: /HPF; Status: F Test: BACTERIA, URINE AUTO; Value: NEGATIVE; Range: NEGATIVE; Status: F Test: SQUAMOUS EPITHELIAL CELL UR AU; Value: 17; Range: 0-6; Units: /HPF; Status: F Test: MUCUS, URINE; Value: SMALL; Range: NEGATIVE; Status: F Test: HYALINE CAST, URINE AUTO; Value: 0; Range: 0-1; Units: /LPF; Status: F Lab Order: Urine Culture; SPEC'M 06/09/16 10:40 Test: URINE CULTURE; Value: <EXTERNAL COMMENT eCWMed> FULL REPORT IN LAB NOTES (eCW and Medent).; Status: F Test: URINE CULTURE; Value: URINE CULTURE RESULT SPECIMEN APPEARS CONTAMINATED; Status: F Radiology Order: CT ABD & PELVIS: No Contrast Test: CT ABD & PELVIS: No Contrast REASON FOR EXAMINATION: Renal colic; CT ABDOMEN AND PELVIS WITHOUT IV OR ORAL CONTRAST: Renal stone protocol.; ; HISTORY: Bilateral flank pain.; ; FINDINGS: Digital preliminary assistant store manager operations radiograph demonstrates an unremarkable; bowel gas pattern. Umbilical jewelry is seen. Bilateral tubal ligation clamps; are seen.; ; Axial CT images demonstrate that the lung bases are clear. The liver and the; spleen are normal in size and homogeneous in texture. Opaque gallstones are seen; filling the lumen of the otherwise contracted appearing gallbladder. There is a; small accessory splenule. No adrenal lesion is seen. No pancreatic abnormality; is observed. Normal caliber aorta is seen. There is a retroaortic left renal; vein. No hydronephrosis is seen. No intrarenal calculus is observed. A normal; appendix is seen. Small and large intestinal bowel loops are unremarkable. The; right tube ligation clamp appears in the right adnexa. The other tubal ligation; clamp is seen directly anterior to the body of the uterus, between it and the; urinary bladder. This has apparently migrated. No abdominal wall defect is; seen. No bony destructive lesion is appreciated. No adnexal mass or pelvic mass; is seen. No adenopathy noted.; ; IMPRESSION:; ; No urinary tract calculus or hydronephrosis. Cholelithiasis. Small contracted; gallbladder filled with stones. Normal appendix. Status post bilateral tubal; ligation. One of the two ligation clamps has migrated.; ; ; Signed by; Endy Diop MD 06/09/2016 11:21 A; Outcome: 11:39 Discharge ordered by Provider. ef1 11:52 Discharge Assessment: Patient awake, alert and oriented x 3. No cognitive and/or jo3 functional deficits noted. Patient verbalized understanding of disposition instructions. patient administered narcotics - no. The following High Risk Discharge criteria are identified: None. Discharged to home ambulatory. Condition: stable Condition: improved. Discharge instructions given to patient, Instructed on discharge instructions, follow up and referral plans. medication usage, Demonstrated understanding of instructions, medications, Pt was receptive of discharge instructions/ teaching. Prescriptions given X 3. CT Study completed. Property sent home with patient. 11:52 Patient left the ED. jo3 Signatures: Dispatcher [employer] EDTaty Gleason RN RN Ammy Jain, RN RN Janee Diaz, FIELD TRAINING AGENT FIELD TRAINING AGENT jam1 Yas Hong, Reg Reg lg Leatha VarelaRN RN jo3 Hermelinda Hernandez, PA-C PA-C ef1 Asia FigueroaRN RN Yany Bhagat Laura lr2 Chart [facility]
--- NOTE | 2016-06-11 12:54 | EDDOCDS ---
Physician Documentation [facility] Name: Elda Hector Age: 26 yrs Sex: Female : 1990 Arrival Date: 06/09/2016 Time: 10:00 Bed I4 / M4 Private MD: Disposition: 06/09/16 11:39 Discharged to Home/Self Care. Impression: Hematuria - Most likely passed kidney stone, Cholelithiasis, Lower abdominal pain, unspecified - with Flank Pain. - Condition is Stable. - Discharge Instructions: Hematuria, Adult, Kidney Stones, Jgjg-jw-[id number], Cholelithiasis, Clem-pc-Pyis, Abdominal Pain, Adult, Vagr-yk-Xrgx, Flank Pain, [id number]-bz-[id number]. - Prescriptions for Flomax 0.4 mg Oral Capsule, Sust. Release 24 hr - take 1 capsule by ORAL route once daily 1/2 hour following the same meal each day; 30 capsule. ZOFRAN ODT 4 mg - dissolve 1 tablet by ORAL route 4 times per day As needed do not chew, do not swallow whole; 10 tablet. ketorolac 10 mg Oral Tablet - take 1 tablet by ORAL route 3 times per day As needed MDD- 30mg. Up to 5 days total use.; 15 tablet. - Medication Reconciliation, Local Pharmacy Hours, Referral List Call for Appointment form. - [facility] up: [facility] ; When: 1 - 2 days; Reason: Recheck today's complaints, Continuance of care. Follow up: [facility]; When: Call to arrange an appointment; Reason: Further diagnostic work-up, Recheck today's complaints, Continuance of care. Follow up: [facility]; When: Call to arrange an appointment; Reason: Further diagnostic work-up, Recheck today's complaints, Continuance of care. Follow up: Emergency Department; Reason: Worsening of conditions. - Problem is new. - Symptoms have improved. Historical: - Allergies: Depakote (Rash); - Home Meds: 1. none - PMHx: Depression; - PSHx: Breast Reduction; ; Tubal ligation; - Social history: Smoking status: Patient uses tobacco products, light tobacco smoker. No barriers to communication noted, The patient speaks fluent Faroese. - Family history: Not pertinent. - : The pt / caregiver states he / she is not on anticoagulants. Home medication list is obtained from the patient. - Exposure Risk Screening:: None identified. 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 1 in. (154.94 cm) (R); Pain 8/10; 11:10 Pain 0/10; jo3 11:38 BP 123 / 65; Pulse 68; Resp 18; Temp 97.2; Pulse Ox 99% ; Pain 0/10; jam1 10:03 Body Mass Index 43.46 (104.33 kg, 154.94 cm) lr2 MDM: 10:25 NS 0.9% 1000 ml IV at bolus once ordered. ef1 10:25 Ondansetron 4 mg IVP once ordered. ef1 10:25 ketorolac 30 mg IVP once ordered. ef1 10:25 IV Saline Lock ordered. ef1 10:25 Undress patient appropriately for examination ordered. ef1 10:26 Amylase Ordered. EDMS 10:26 Basic Metabolic Profile Ordered. EDMS 10:26 CBC with Diff Ordered. EDMS 10:26 Lipase Ordered. EDMS 10:26 Liver Profile Ordered. EDMS 10:26 Urinalysis Ordered. EDMS 10:26 Urine Culture Ordered. EDMS 10:26 CT ABD & PELVIS: No Contrast Ordered. EDMS 10:26 NOTHING BY MOUTH+DIET ordered. EDMS 10:29 Financial registration complete. lg 10:37 UCG by Nursing ordered. ef1 11:25 [facility] [place] Agreement was scanned into [employer] and attached to record. lg 11:33 Basic Metabolic Profile Reviewed. ef1 11:33 CBC with Diff Reviewed. ef1 11:33 Liver Profile Reviewed. ef1 11:33 Urinalysis Reviewed. ef1 11:33 Amylase Reviewed. ef1 11:33 Lipase Reviewed. ef1 11:33 CT ABD & PELVIS: No Contrast Reviewed. ef1 17:38 T-Sheet-- Draft Copy was scanned into [employer] and attached to record. klr Point of Care Testing: Urine : 10:43 hCG Reading: Negative; Control Reading: Positive; pml Ranges: Administered Medications: 10:42 Drug: NS 0.9% 1000 ml [sodium chloride 0.9 % injection solution] Route: IV; Rate: pml bolus; Site: right antecubital; 11:55 Follow up: IV Status: Completed infusion jo3 10:42 Drug: Ondansetron 4 mg [ondansetron HCl 2 mg/mL intravenous solution (2 mL)] Route: pml IVP; Site: right antecubital; 10:42 Drug: ketorolac 30 mg [ketorolac 30 mg/mL (1 mL) injection solution (1 mL)] Route: IVP; pml Site: right antecubital; 11:10 Follow up: Pain 0/10 Adult jo3 Signatures: Dispatcher [employer] EDTaty Gleason RN RN Yas Johnson, Ramon Reg Leatha Madrid RN RN jo3 Hermelinda Hernandez, PAZulmaC PAZulmaC Yany Alonzo Paulina RN pml The chart was reviewed and I authenticate all verbal orders and agree with the evaluation and treatment provided.Attachments: 11:25 [facility] Payment Agreement lg 17:38 T-Sheet-- Draft Copy klr Chart Complete [facility]
== END 2016-06-09 11:52 | disposition home or self-care (01) ==
LOC: M ED 10:00
DX: R31.9 Hematuria, unspecified (principal); K80.20 Calculus of gallbladder without cholecystitis without obstruction; R11.2 Nausea with vomiting, unspecified; R10.31 Right lower quadrant pain; F32.9 Major depressive disorder, single episode, unspecified; F17.200 Nicotine dependence, unspecified, uncomplicated; Z88.8 Allergy status to other drugs, medicaments and biological substances
CPT/HCPCS: 36415; 74176; 80048; 80076; 81001; 81025; 82150; 83690; 85025; 87086; 96361; 96374; 96375; 99284; J1885; J2405

== ENCOUNTER → 2016-11-30 | Outpatient (CLI) | payer MEDICAID, OTHER | LOC: M SMT 10:54 | PROVIDERS: ATTEND Advanced Practice Midwife | DX: N91.2 Amenorrhea, unspecified (principal) ==

== ENCOUNTER → 2017-02-04 | Outpatient (CLI) | payer OTHER ==
[2017-02-04 12:49] LABS: MEAN CORPUSCULAR HEMOGLOBIN 23.9 pg (27.0-33.0); MEAN CORPUSCULAR HGB CONC 30.9 g/dl (32.0-36.5); MEAN CORPUSCULAR VOLUME 77.2 fl (80.0-96.0); RED CELL DISTRIBUTION WIDTH 14.6 % (11.5-14.5); WHITE BLOOD COUNT 11.5 10^3/uL (4.0-10.0)
[2017-02-04 13:24] LABS: VITAMIN B12 LEVEL 734 PG/ML
[2017-02-04 13:25] LABS: FOLATE 11.2 NG/ML
[2017-02-04 13:26] LABS: ALBUMIN 3.7 GM/DL (3.2-5.2); ALBUMIN/GLOBULIN RATIO 0.95 (1.00-1.93); ALKALINE PHOSPHATASE 88 U/L (45-117); ALT/SGPT 19 U/L (12-78); ANION GAP 7 MEQ/L (8-16); AST/SGOT 9 U/L (15-37); BILIRUBIN,TOTAL 0.2 MG/DL (0.2-1.0); BLOOD UREA NITROGEN 11 MG/DL (7-18); CALCIUM LEVEL 8.9 MG/DL (8.5-10.1); CARBON DIOXIDE LEVEL 27 MEQ/L (21-32); CHLORIDE LEVEL 108 MEQ/L (98-107); CHOLESTEROL LEVEL 192 MG/DL (<200); CREATININE FOR GFR 0.67 MG/DL (0.55-1.02); FREE T4 0.93 NG/DL (0.76-1.46); GLOMERULAR FILTRATION RATE > 60.0 (>60); GLUCOSE, FASTING 84 MG/DL (70-105); PERCENT SATURATION 6.6 % (13.2-45.0); POTASSIUM SERUM 4.4 MEQ/L (3.5-5.1); SODIUM LEVEL 142 MEQ/L (136-145); TOTAL IRON BINDING CAPACITY 349 UG/DL (250-450); TOTAL PROTEIN 7.6 GM/DL (6.4-8.2); TRIGLYCERIDES LEVEL 110 MG/DL (<150)
== END ==
LOC: M LAB 11:54
PROVIDERS: ATTEND Registered Nurse
DX: E66.01 Morbid (severe) obesity due to excess calories (principal)

== ENCOUNTER → 2017-05-08 | Outpatient (CLI) | payer OTHER | LOC: M RAD 09:37 | DX: E66.01 Morbid (severe) obesity due to excess calories (principal); K80.20 Calculus of gallbladder without cholecystitis without obstruction | CPT/HCPCS: 76705 ==

== ENCOUNTER → 2017-05-09 | Outpatient (REF) | payer OTHER ==
[2017-05-09 15:51] LABS: HEMOGLOBIN 11.2 g/dl (12.0-16.0); MEAN CORPUSCULAR HEMOGLOBIN 23.6 pg (27.0-33.0); MEAN CORPUSCULAR HGB CONC 31.1 g/dl (32.0-36.5); MEAN CORPUSCULAR VOLUME 75.9 fl (80.0-96.0); PLATELET COUNT, AUTOMATED 351 10^3/uL (150-450); RED BLOOD COUNT 4.74 10^6/uL (4.00-5.40); RED CELL DISTRIBUTION WIDTH 14.9 % (11.5-14.5); WHITE BLOOD COUNT 10.9 10^3/uL (4.0-10.0)
[2017-05-09 16:10] LABS: ALBUMIN 3.8 GM/DL (3.2-5.2); ALBUMIN/GLOBULIN RATIO 0.95 (1.00-1.93); ALKALINE PHOSPHATASE 92 U/L (45-117); ALT/SGPT 16 U/L (12-78); ANION GAP 7 MEQ/L (8-16); AST/SGOT 11 U/L (7-37); BILIRUBIN,TOTAL 0.2 MG/DL (0.2-1.0); BLOOD UREA NITROGEN 12 MG/DL (7-18); CALCIUM LEVEL 8.9 MG/DL (8.5-10.1); CARBON DIOXIDE LEVEL 25 MEQ/L (21-32); CHLORIDE LEVEL 109 MEQ/L (98-107); CREATININE FOR GFR 0.89 MG/DL (0.55-1.02); FERRITIN 11 NG/ML (8-252); GLOMERULAR FILTRATION RATE > 60.0 (>60); GLUCOSE, FASTING 79 MG/DL (70-105); POTASSIUM SERUM 4.1 MEQ/L (3.5-5.1); SODIUM LEVEL 141 MEQ/L (136-145); TOTAL PROTEIN 7.8 GM/DL (6.4-8.2)
[2017-05-09 17:03] LABS: ERYTHROCYTE SEDIMENTATION RATE 52 mm/hr (0-20)
[2017-05-09 20:50] LABS: TOTAL 25(OH) VITAMIN D 22.4 NG/ML (30.0-100.0)
== END ==
LOC: M SFHCPLAZ 13:57
DX: M79.7 Fibromyalgia (principal); D50.8 Other iron deficiency anemias; E55.9 Vitamin D deficiency, unspecified

== ENCOUNTER → 2017-05-14 | Outpatient (CLI) | payer OTHER ==
[2017-05-18 14:10] LABS: HPV HYBRID CAPTURE II Positive (Negative)
== END ==
LOC: M SMT 08:00
DX: N92.0 Excessive and frequent menstruation with regular cycle (principal)
CPT/HCPCS: 88142

== ENCOUNTER → 2017-05-16 | Outpatient (CLI) | payer OTHER ==
[2017-05-16 11:42] LABS: FREE T4 0.89 NG/DL (0.76-1.46)
== END ==
LOC: M LAB 10:09
DX: N92.0 Excessive and frequent menstruation with regular cycle (principal); N94.6 Dysmenorrhea, unspecified
CPT/HCPCS: 76856

== ENCOUNTER → 2017-05-30 | Outpatient (REF) | payer OTHER | LOC: M LAB REF 17:11 | DX: B00.1 Herpesviral vesicular dermatitis (principal) ==

== ENCOUNTER → 2017-06-25 | Outpatient (REF) | payer OTHER | LOC: M LAB REF 18:07 | DX: R87.610 Atypical squamous cells of undetermined significance on cytologic smear of cervix (ASC-US) (principal) | CPT/HCPCS: 88305 ==

== ENCOUNTER → 2018-05-20 | Outpatient (REF) | payer OTHER | LOC: M LAB REF 17:52 | PROVIDERS: ATTEND Advanced Practice Midwife | DX: Z12.4 Encounter for screening for malignant neoplasm of cervix (principal) ==

== ENCOUNTER → 2018-05-27 | Outpatient (CLI) | payer MEDICAID, OTHER, SELFPAY ==
--- NOTE | 2018-05-27 13:36 | REP ---
PELVIC SONOGRAPHY: HISTORY: Pelvic and perineal pain. Norma IUD placed May 25, 2017. FINDINGS: Transabdominal and transvaginal scanning are performed. Uterine dimensions are normal at 7.3 x 3.9 x 3.5 cm. Endometrial echo 0.6 cm thick. IUD is seen in good position in the uterine endometrium. Visualized bladder hodges are smooth. No free fluid is seen in the cul-de-sac. Normal ovaries are observed bilaterally. Right ovary measures 2.4 x 1.1 x 1.9 cm. Left ovary dimensions are 2.8 x 1.8 x 2.2 cm. Doppler flow is normal to both ovaries. Resistive indices are measured at 0.44 and 0.51 on the right and left respectively. IMPRESSION: IUD in place. Normal pelvic sonography. Electronically Signed by Endy Diop MD 05/27/2018 05:34 P
== END ==
LOC: M RAD 10:11
PROVIDERS: ATTEND Advanced Practice Midwife
DX: Z97.5 Presence of (intrauterine) contraceptive device (principal); R10.2 Pelvic and perineal pain

== ENCOUNTER → 2018-07-03 | Outpatient (REF) | payer OTHER | LOC: M SFHCPLAZ 10:47 | PROVIDERS: ATTEND Nurse Practitioner Family | DX: R35.0 Frequency of micturition (principal) ==

== ENCOUNTER → 2018-08-05 | Outpatient (REF) | payer OTHER ==
[2018-08-05 12:19] LABS: BASO # 0.1 10^3/uL (0.0-0.2); BASO % 1.3 % (0.0-1.0); EOS # 0.4 10^3/uL (0.0-0.50); EOS % 4.9 % (0.0-3.0); HEMATOCRIT 38.9 % (36.0-47.0); HEMOGLOBIN 12.8 g/dl (12.0-15.5); LYMPH # 2.6 10^3/uL (1.5-6.5); MEAN CORPUSCULAR HEMOGLOBIN 28.6 pg (27.0-33.0); MEAN CORPUSCULAR HGB CONC 32.9 g/dl (32.0-36.5); MONO # 0.8 10^3/uL (0.0-0.8); MONO % 9.3 % (0.0-5.0); NEUTROPHILS # 4.5 10^3/uL (1.8-7.7); NEUTROPHILS % 53.3 % (36.0-66.0); PLATELET COUNT, AUTOMATED 253 10^3/uL (150-450); RED BLOOD COUNT 4.47 10^6/uL (4.00-5.40); WHITE BLOOD COUNT 8.5 10^3/uL (4.0-10.0)
[2018-08-05 12:59] LABS: ALBUMIN 3.8 GM/DL (3.2-5.2); ALT/SGPT 15 U/L (12-78); BILIRUBIN,TOTAL 0.2 MG/DL (0.2-1.0); BLOOD UREA NITROGEN 14 MG/DL (7-18); C REACTIVE PROTEIN QUANTITATIV 0.95 MG/DL (0.00-0.30); CALCIUM LEVEL 8.8 MG/DL (8.5-10.1); CARBON DIOXIDE LEVEL 25 MEQ/L (21-32); CHLORIDE LEVEL 110 MEQ/L (98-107); CREATININE FOR GFR 0.75 MG/DL (0.55-1.30); FERRITIN 37 NG/ML (8-252); FOLATE 7.6 NG/ML; FREE T4 1.17 NG/DL (0.76-1.46); GLOMERULAR FILTRATION RATE > 60.0 (>60); GLUCOSE, FASTING 70 MG/DL (70-100); RHEUMATOID FACTOR QUANT < 10.0 IU/ML (<15.0); SODIUM LEVEL 143 MEQ/L (136-145); TOTAL 25(OH) VITAMIN D 21.5 NG/ML (30.0-100.0)
[2018-08-05 14:04] LABS: VITAMIN B12 LEVEL 666 PG/ML
[2018-08-05 14:27] LABS: ERYTHROCYTE SEDIMENTATION RATE 26 mm/hr (0-20)
[2018-08-07 00:07] LABS: ANA (HEP2) Negative (.)
== END ==
LOC: M SFHCPLAZ 07:44
PROVIDERS: ATTEND Nurse Practitioner Family
DX: F33.1 Major depressive disorder, recurrent, moderate (principal); D50.8 Other iron deficiency anemias; M79.7 Fibromyalgia; M25.50 Pain in unspecified joint; E55.9 Vitamin D deficiency, unspecified; Z98.84 Bariatric surgery status

== ENCOUNTER → 2018-09-02 | Outpatient (REF) | payer OTHER | LOC: M LAB REF 10:57 | PROVIDERS: ATTEND Advanced Practice Midwife | DX: Z12.4 Encounter for screening for malignant neoplasm of cervix (principal) ==

== ENCOUNTER 2018-10-21 16:44 | Emergency (ER) | payer MEDICAID, OTHER ==
[2018-10-21] MEDS ORDERED: PHEN15CA PO (16:54)
[2018-10-21] MEDS ORDERED: NS 1,000 ML IV ONE ×2 (17:45→19:15)
[2018-10-21 18:12] LABS: BASO # 0.1 10^3/uL (0.0-0.2); BASO % 1.6 % (0.0-1.0); EOS # 0.3 10^3/uL (0.0-0.50); EOS % 3.1 % (0.0-3.0); HEMATOCRIT 36.1 % (36.0-47.0); HEMOGLOBIN 12.3 g/dl (12.0-15.5); LYMPH # 2.3 10^3/uL (1.5-6.5); LYMPH % 26.5 % (24.0-44.0); MEAN CORPUSCULAR HEMOGLOBIN 29.6 pg (27.0-33.0); MEAN CORPUSCULAR HGB CONC 34.1 g/dl (32.0-36.5); MEAN CORPUSCULAR VOLUME 86.8 fl (80.0-96.0); MONO # 0.7 10^3/uL (0.0-0.8); MONO % 7.6 % (0.0-5.0); NEUTROPHILS # 5.3 10^3/uL (1.8-7.7); NEUTROPHILS % 60.9 % (36.0-66.0); PLATELET COUNT, AUTOMATED 283 10^3/uL (150-450); RED BLOOD COUNT 4.16 10^6/uL (4.00-5.40); WHITE BLOOD COUNT 8.7 10^3/uL (4.0-10.0)
[2018-10-21] MEDS ORDERED: ISOVUE-370 76% 100ML VIAL (Q9967) As Ordered ONE (18:18)
[2018-10-21 18:30] LABS: CK-MB VALUE MASS < 1.0 NG/ML (<3.6); CPK CREATINE PHOSPHOKINASE 62 U/L (26-192); ETHYL ALCOHOL (ETHANOL) < 0.003 % (0.000-0.010); FREE T4 0.92 NG/DL (0.76-1.46); MAGNESIUM LEVEL 2.4 MG/DL (1.8-2.4); MB/CK RELATIVE INDEX 1.61 (< OR =4); TROPONIN I < 0.02 NG/ML (< 0.10)
--- NOTE | 2018-10-21 18:51 | REPVR ---
EXAM: CT Abdomen and Pelvis With Contrast EXAM DATE/TIME: 10/21/2018 6:31 PM CLINICAL HISTORY: 28 years old, female; Other: Syncope TECHNIQUE: Imaging protocol: Axial computed tomography images of the abdomen and pelvis with intravenous contrast. Coronal and sagittal reformatted images were created and reviewed. Radiation optimization: All CT scans at this facility use at least one of these dose optimization techniques: automated exposure control; mA and/or kV adjustment per patient size (includes targeted exams where dose is matched to clinical indication); or iterative reconstruction. Contrast material: ISOVUE 370; Contrast volume: 100 ml; Contrast route: IV; COMPARISON: CT ABD PELVIS W/O CONTRAST 06/09/2016 10:45 AM FINDINGS: ABDOMEN: Liver: There is a diffuse decrease in hepatic parenchymal density, consistent with fatty infiltration. Gallbladder and bile ducts: There has been a cholecystectomy. Pancreas: Normal. No ductal dilation. Spleen: Normal. No splenomegaly. Adrenals: Normal. No mass. Kidneys and ureters: Normal. No hydronephrosis. Stomach and bowel: This patient is status post gastric bypass surgery. Appendix: No evidence of appendicitis. PELVIS: Bladder: Unremarkable as visualized. Reproductive: IUD located centrally within the uterus. Again demonstrated is a apparently migrated tubal ligation clamp from the left adnexa is located in the right lower quadrant anterior to the right adnexa. The right tubal clamp was normally located. ABDOMEN and PELVIS: Intraperitoneal space: Normal. No free air. No significant fluid collection. Bones/joints: No acute fracture. No dislocation. Soft tissues: Unremarkable. Vasculature: Normal. No abdominal aortic aneurysm. Lymph nodes: Normal. No enlarged lymph nodes. IMPRESSION: 1. There is a diffuse decrease in hepatic parenchymal density, consistent with fatty infiltration. 2. There has been a cholecystectomy. 3. This patient is status post gastric bypass surgery. Electronically signed by: Wong Alicea On 10/21/2018 18:51:18 PM
--- NOTE | 2018-10-21 18:53 | REPVR ---
EXAM: CT Head Without Contrast EXAM DATE/TIME: 10/21/2018 6:31 PM CLINICAL HISTORY: 28 years old, female; Syncope and collapse TECHNIQUE: Imaging protocol: Axial computed tomography images of the head without contrast. Radiation optimization: All CT scans at this facility use at least one of these dose optimization techniques: automated exposure control; mA and/or kV adjustment per patient size (includes targeted exams where dose is matched to clinical indication); or iterative reconstruction. COMPARISON: CT Head without contrast 09/24/2015 5:09 AM FINDINGS: Brain: Normal. No hemorrhage. Unremarkable white matter. No mass effect. Ventricles: Normal. No ventriculomegaly. Bones/joints: Unremarkable. No acute fracture. Sinuses: Inflammatory changes right ethmoid and sphenoid sinuses. Mastoid air cells: Visualized mastoid air cells are well aerated. No mastoid effusion. Soft tissues: Unremarkable. IMPRESSION: No acute intracranial findings. Electronically signed by: Wong Alicea On 10/21/2018 18:52:59 PM
--- NOTE | 2018-10-21 18:55 | REPVR ---
EXAM: CT Angiography Chest With Contrast EXAM DATE/TIME: 10/21/2018 6:31 PM CLINICAL HISTORY: 28 years old, female; Other: Syncope TECHNIQUE: Imaging protocol: Axial computed tomographic angiography images of the chest with intravenous contrast using CT angiography protocol. Coronal and sagittal reformatted images were created and reviewed. 3D rendering: MIP reconstructed images were created and reviewed. Radiation optimization: All CT scans at this facility use at least one of these dose optimization techniques: automated exposure control; mA and/or kV adjustment per patient size (includes targeted exams where dose is matched to clinical indication); or iterative reconstruction. Contrast material: ISOVUE 370; Contrast volume: 100 ml; Contrast route: IV; COMPARISON: No relevant prior studies available. FINDINGS: Pulmonary arteries: Normal. No pulmonary emboli. Aorta: Unremarkable. No aortic aneurysm. No aortic dissection. Lungs: Unremarkable. No consolidation. No masses. Pleural space: Unremarkable. No pneumothorax. No pleural effusion. Heart: Unremarkable. No cardiomegaly. No pericardial effusion. Lymph nodes: Unremarkable. No enlarged lymph nodes. Bones/joints: Unremarkable. No acute fracture. Soft tissues: Unremarkable. IMPRESSION: No acute findings. Electronically signed by: Wong Alicea On 10/21/2018 18:55:40 PM
[2018-10-21 19:12] LABS: INR 1.24; PROTHROMBIN TIME 15.8 SECONDS (12.1-14.4)
[2018-10-21 19:13] LABS: PARTIAL THROMBOPLASTIN TIME 30.2 SECONDS (25.4-37.6)
[2018-10-21 19:17] LABS: AMPHETAMINES LEVEL URINE NEGATIVE (NEGATIVE); BARBITURATES URINE NEGATIVE (NEGATIVE); BENZODIAZEPINES URINE NEGATIVE (NEGATIVE); CANNABINOIDS URINE POSITIVE (NEGATIVE); COCAINE METABOLITE URINE NEGATIVE (NEGATIVE); METHADONE URINE NEGATIVE (NEGATIVE); OPIATES URINE NEGATIVE (NEGATIVE); PHENCYCLIDINE URINE NEGATIVE (NEGATIVE)
--- NOTE | 2018-10-21 19:24 | ECGEPIP ---
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
[2018-10-21 19:45] VITALS: BP 166/103
== END 2018-10-21 20:04 | disposition home or self-care (01) ==
LOC: EDSEX 16:44 → M ED 16:44 → EDBD 16:44 → M ED 20:04
DX: I95.1 Orthostatic hypotension (principal); M79.7 Fibromyalgia; F32.9 Major depressive disorder, single episode, unspecified; E55.9 Vitamin D deficiency, unspecified; Z87.891 Personal history of nicotine dependence; Z98.84 Bariatric surgery status; Z88.8 Allergy status to other drugs, medicaments and biological substances
CPT/HCPCS: 36415; 70450; 71275; 74177; 80047; 80307; 82550; 82553; 83735; 84439; 84443; 84702; 85025; 85610; 85730; 93005; 93041; 94760; 96360; 96361; 99285; G0480; Q9967

== ENCOUNTER → 2018-12-11 | Outpatient (REF) | payer OTHER ==
[~2018-12-11] MED LIST changes: +PHEN15CA PO
[2018-12-11 13:09] LABS: HEMATOCRIT 37.7 % (36.0-47.0); HEMOGLOBIN 12.6 g/dl (12.0-15.5); MEAN CORPUSCULAR HGB CONC 33.4 g/dl (32.0-36.5); MEAN CORPUSCULAR VOLUME 86.7 fl (80.0-96.0); PLATELET COUNT, AUTOMATED 290 10^3/uL (150-450); RED BLOOD COUNT 4.35 10^6/uL (4.00-5.40); WHITE BLOOD COUNT 13.5 10^3/uL (4.0-10.0)
[2018-12-11 13:38] LABS: BLOOD UREA NITROGEN 12 MG/DL (7-18); CALCIUM LEVEL 8.8 MG/DL (8.5-10.1); CARBON DIOXIDE LEVEL 23 MEQ/L (21-32); CHLORIDE LEVEL 111 MEQ/L (98-107); FERRITIN 80 NG/ML (8-252); GLOMERULAR FILTRATION RATE > 60.0 (>60); GLUCOSE, FASTING 73 MG/DL (70-100); POTASSIUM SERUM 3.7 MEQ/L (3.5-5.1); SODIUM LEVEL 141 MEQ/L (136-145)
[2018-12-11 13:42] LABS: TOTAL 25(OH) VITAMIN D 21.3 NG/ML (30.0-100.0)
[2018-12-11 13:43] LABS: FOLATE 5.3 NG/ML; VITAMIN B12 LEVEL 456 PG/ML
== END ==
LOC: M SFHCPLAZ 10:32
PROVIDERS: ATTEND Nurse Practitioner Family
DX: E55.9 Vitamin D deficiency, unspecified (principal); R20.2 Paresthesia of skin; R53.83 Other fatigue

== ENCOUNTER 2019-02-09 21:21 | Emergency (ER) | payer MEDICAID, OTHER ==
[~2019-02-09] VITALS: Ht 152.4 cm; Wt 75.0 kg
[2019-02-09 22:25] LABS: HEMATOCRIT 36.1 % (36.0-47.0); HEMOGLOBIN 12.1 g/dl (12.0-15.5); MEAN CORPUSCULAR HEMOGLOBIN 29.4 pg (27.0-33.0); MEAN CORPUSCULAR HGB CONC 33.5 g/dl (32.0-36.5); MEAN CORPUSCULAR VOLUME 87.6 fl (80.0-96.0); PLATELET COUNT, AUTOMATED 279 10^3/uL (150-450); RED BLOOD COUNT 4.12 10^6/uL (4.00-5.40); WHITE BLOOD COUNT 10.9 10^3/uL (4.0-10.0)
[2019-02-09 22:51] LABS: AMPHETAMINES LEVEL URINE NEGATIVE (NEGATIVE); BARBITURATES URINE NEGATIVE (NEGATIVE); BENZODIAZEPINES URINE NEGATIVE (NEGATIVE); CANNABINOIDS URINE NEGATIVE (NEGATIVE); COCAINE METABOLITE URINE POSITIVE (NEGATIVE); METHADONE URINE NEGATIVE (NEGATIVE); OPIATES URINE NEGATIVE (NEGATIVE); PHENCYCLIDINE URINE NEGATIVE (NEGATIVE)
[2019-02-09 22:57] LABS: ACETAMINOPHEN LEVEL < 2.0 UG/ML (10.0-30.0); ALBUMIN 3.7 GM/DL (3.2-5.2); ALT/SGPT 18 U/L (12-78); BILIRUBIN,DIRECT < 0.1 MG/DL (0.0-0.2); BILIRUBIN,TOTAL 0.2 MG/DL (0.2-1.0); BLOOD UREA NITROGEN 10 MG/DL (7-18); CALCIUM LEVEL 8.8 MG/DL (8.5-10.1); CARBON DIOXIDE LEVEL 25 MEQ/L (21-32); CHLORIDE LEVEL 109 MEQ/L (98-107); CREATININE FOR GFR 0.86 MG/DL (0.55-1.30); ETHYL ALCOHOL (ETHANOL) < 0.003 % (0.000-0.010); GLOMERULAR FILTRATION RATE > 60.0 (>60); GLUCOSE, FASTING 80 MG/DL (70-100); POTASSIUM SERUM 3.7 MEQ/L (3.5-5.1); SALICYLATE LEVEL < 1.7 MG/DL (5.0-30.0); SODIUM LEVEL 143 MEQ/L (136-145); TOTAL PROTEIN 7.3 GM/DL (6.4-8.2)
[2019-02-09 23:35] LABS: URINE PREG TEST NEGATIVE (NEGATIVE)
[2019-02-09] MEDS ORDERED: NITROFURANTOIN (MACROBID) 100 MG CAP PO ONE (23:50)
[2019-02-09] MEDS ORDERED: NITROFURANTOIN (MACROBID) 100 MG CAP PO SCH (23:50)
[2019-02-10] MEDS ORDERED: PROZ40CA PO (08:13)
[2019-02-10] MEDS ORDERED: TOPA1TAB PO (08:13)
[2019-02-10] MEDS ORDERED: TOPIRAMATE (TopAMAX) 25 MG TAB PO ONE (08:15)
[2019-02-10] MEDS ORDERED: FLUoxetine 20 MG CAP PO ONE (08:15)
[2019-02-10] MEDS ORDERED: MACR100C43 PO (08:38)
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
[2019-02-10 09:18] VITALS: BP 132/85
[2019-02-13] MEDS ORDERED: BACT800T5 PO (07:50)
== END 2019-02-10 09:20 | disposition home or self-care (01) ==
LOC: M ED 21:21
DX: Z04.6 Encounter for general psychiatric examination, requested by authority (principal); N39.0 Urinary tract infection, site not specified; F32.9 Major depressive disorder, single episode, unspecified; F17.200 Nicotine dependence, unspecified, uncomplicated; Z79.899 Other long term (current) drug therapy; Z98.0 Intestinal bypass and anastomosis status; Z88.8 Allergy status to other drugs, medicaments and biological substances
CPT/HCPCS: 36415; 80048; 80076; 80307; 81001; 84443; 84703; 85027; 87088; 87186; 99284; G0480

== ENCOUNTER 2019-02-12 04:17 | Emergency (ER) | payer OTHER ==
[~2019-02-12] VITALS: Ht 154.9 cm; Wt 71.8 kg
[~2019-02-12 04:17] MED LIST changes: +MACR100C43 PO; +PROZ40CA PO; +TOPA1TAB PO
[2019-02-12] MEDS ORDERED: KETOROLAC 30 MG/ML VIAL (J1885) IV ONE (05:30)
[2019-02-12] MEDS ORDERED: NS 1,000 ML IV ONE (05:30)
[2019-02-12] MEDS ORDERED: ONDANSETRON 4MG/2ML VIAL (J2405) IV ONE (05:30)
[2019-02-12 05:43] LABS: BASO # 0.1 10^3/uL (0.0-0.2); BASO % 0.8 % (0.0-1.0); EOS # 0.3 10^3/uL (0.0-0.5); EOS % 2.9 % (0.0-3.0); HEMATOCRIT 36.6 % (36.0-47.0); HEMOGLOBIN 11.7 g/dl (12.0-15.5); LYMPH # 2.9 10^3/uL (1.5-5.0); LYMPH % 31.8 % (24.0-44.0); MEAN CORPUSCULAR HEMOGLOBIN 28.4 pg (27.0-33.0); MEAN CORPUSCULAR VOLUME 88.8 fl (80.0-96.0); MONO # 0.7 10^3/uL (0.0-0.8); NEUTROPHILS # 5.2 10^3/uL (1.5-8.5); NEUTROPHILS % 56.2 % (36.0-66.0); PLATELET COUNT, AUTOMATED 273 10^3/uL (150-450); RED BLOOD COUNT 4.12 10^6/uL (4.00-5.40); WHITE BLOOD COUNT 9.2 10^3/uL (4.0-10.0)
[2019-02-12 06:06] LABS: ALBUMIN 3.6 GM/DL (3.2-5.2); ALT/SGPT 17 U/L (12-78); BILIRUBIN,DIRECT < 0.1 MG/DL (0.0-0.2); BILIRUBIN,TOTAL 0.3 MG/DL (0.2-1.0); LIPASE 187 U/L (73-393); TOTAL PROTEIN 7.2 GM/DL (6.4-8.2)
[2019-02-12] MEDS ORDERED: CIPR-249 PO (06:21)
[2019-02-12] MEDS ORDERED: PYRI1TAB5 PO (06:21)
[2019-02-12] MEDS ORDERED: PHENAZOPYRIDINE 100 MG TAB PO ONE (06:30)
[2019-02-12] MEDS ORDERED: CIPROFLOXACIN 500 MG TAB PO ONE (06:30)
[2019-02-12 06:50] VITALS: BP 119/83
[2019-02-13] MEDS ORDERED: BACT800T5 PO (07:50)
== END 2019-02-12 06:54 | disposition home or self-care (01) ==
LOC: M ED 04:17
DX: N10 Acute pyelonephritis (principal); F17.200 Nicotine dependence, unspecified, uncomplicated; Z79.899 Other long term (current) drug therapy; Z88.8 Allergy status to other drugs, medicaments and biological substances
CPT/HCPCS: 80047; 80076; 81001; 83690; 84702; 85025; 87086; 96374; 96375; 99284; J1885; J2405

== ENCOUNTER 2019-05-03 17:22 | Emergency (ER) | payer MEDICAID, OTHER ==
[~2019-05-03] VITALS: Ht 154.9 cm; Wt 83.3 kg
[~2019-05-03 17:22] MED LIST changes: +BACT800T5 PO; +CIPR-249 PO; +PYRI1TAB5 PO
[2019-05-03] MEDS ORDERED: ONDANSETRON 4MG/2ML VIAL (J2405) IV ONE (18:15)
[2019-05-03] MEDS ORDERED: NS 1,000 ML IV ONE (18:15)
[2019-05-03] MEDS ORDERED: PREG100CA PO (19:01)
[2019-05-03 19:23] LABS: BLOOD UREA NITROGEN 12 MG/DL (7-18); CALCIUM LEVEL 8.3 MG/DL (8.5-10.1); CARBON DIOXIDE LEVEL 25 MEQ/L (21-32); CHLORIDE LEVEL 109 MEQ/L (98-107); CREATININE FOR GFR 0.76 MG/DL (0.55-1.30); GLOMERULAR FILTRATION RATE > 60.0 (>60); GLUCOSE, FASTING 90 MG/DL (70-100); POTASSIUM SERUM 4.2 MEQ/L (3.5-5.1); SODIUM LEVEL 142 MEQ/L (136-145)
[2019-05-03 20:06] LABS: BASO # 0.1 10^3/uL (0.0-0.2); BASO % 1.2 % (0.0-1.0); EOS # 0.4 10^3/uL (0.0-0.5); EOS % 3.9 % (0.0-3.0); HEMATOCRIT 37.1 % (36.0-47.0); HEMOGLOBIN 11.7 g/dl (12.0-15.5); LYMPH # 3.5 10^3/uL (1.5-5.0); LYMPH % 32.7 % (24.0-44.0); MEAN CORPUSCULAR HEMOGLOBIN 28.3 pg (27.0-33.0); MEAN CORPUSCULAR HGB CONC 31.5 g/dl (32.0-36.5); MEAN CORPUSCULAR VOLUME 89.8 fl (80.0-96.0); MONO # 0.7 10^3/uL (0.0-0.8); MONO % 6.4 % (0.0-5.0); NEUTROPHILS # 5.9 10^3/uL (1.5-8.5); NEUTROPHILS % 55.2 % (36.0-66.0); PLATELET COUNT, AUTOMATED 265 10^3/uL (150-450); RED BLOOD COUNT 4.13 10^6/uL (4.00-5.40); WHITE BLOOD COUNT 10.8 10^3/uL (4.0-10.0)
--- NOTE | 2019-05-03 20:19 | REPVR ---
PROCEDURE INFORMATION: Exam: US Pelvis Complete, Transabdominal Exam date and time: 05/03/2019 7:25 PM Age: 28 years old Clinical indication: Menstruation abnormalities; Excessive menstruation; Additional info: Vag bleeding and pain with iud, verify placement TECHNIQUE: Imaging protocol: Real-time transabdominal pelvic ultrasound with image documentation. Complete exam. COMPARISON: US PELVIC NON-OB COMPLETE 05/27/2018 10:28 AM FINDINGS: Uterus/cervix: The uterus measures 9.1 cm x 3.7 cm x 4.5 cm. The endometrial stripe measures 2.2 mm. There is an echogenic IUD within the endometrial cavity of the lower uterine segment/endocervical canal. Right adnexa: Ovary is normal. No mass. Normal blood flow. Left adnexa: Hypoechoic nodule with enhanced through sound transmission measuring 12 mm x 8 mm x 11 mm, likely hemorrhagic/involuting cyst. Normal blood flow. Free fluid: None. Bladder: Normal as visualized. IMPRESSION: 1. Echogenic IUD within the endometrial cavity of the lower uterine segment/endocervical canal. 2. Left ovary hypoechoic nodule with enhanced through sound transmission measuring 12 mm x 8 mm x 11 mm, likely hemorrhagic/involuting cyst. Followup pelvic ultrasound in 6-8 weeks confirm resolution is recommended. Electronically signed by: Master An On 05/03/2019 20:19:29 PM
[2019-05-03 21:20] VITALS: BP 135/101
[2019-05-03] MEDS ORDERED: FLAG500T PO (22:15)
[2019-05-03] MEDS ORDERED: metroNIDAZOLE (FLAGYL) 500 MG TAB PO ONE (22:30)
[2019-05-03 22:56] LABS: CHLAMYDIA DNA AMPLIFICATION NEGATIVE (NEGATIVE); GC DNA AMPLIFICATION NEGATIVE (NEGATIVE)
== END 2019-05-03 22:27 | disposition home or self-care (01) ==
LOC: M ED 17:22
DX: N76.0 Acute vaginitis (principal); N93.9 Abnormal uterine and vaginal bleeding, unspecified; Z97.5 Presence of (intrauterine) contraceptive device; Z86.19 Personal history of other infectious and parasitic diseases; Z87.448 Personal history of other diseases of urinary system; Z98.84 Bariatric surgery status; N83.8 Other noninflammatory disorders of ovary, fallopian tube and broad ligament; Z79.899 Other long term (current) drug therapy; Z88.8 Allergy status to other drugs, medicaments and biological substances
CPT/HCPCS: 36415; 76830; 76856; 80048; 81001; 84702; 85025; 86850; 87210; 87491; 87591; 93976; 96374; 99284; J2405

== ENCOUNTER 2019-05-21 09:09 | Emergency (ER) | payer OTHER ==
[~2019-05-21 09:09] MED LIST changes: +FLAG500T PO; +PREG100CA PO
[2019-05-21 09:18] VITALS: BP 125/87
[2019-05-21] MEDS ORDERED: LIDOCAINE 2% W/EPIN INJ 20ML **PRES FREE INJ ONE (09:30)
[2019-05-21] MEDS ORDERED: ACETAMINOPHEN 500 MG TAB PO ONE (09:45)
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
[2019-05-21] MEDS ORDERED: BACI500O21 TOP (10:03)
== END 2019-05-21 10:27 | disposition home or self-care (01) ==
LOC: EDBD 09:09 → M ED 09:09
DX: S01.81XA Laceration without foreign body of other part of head, initial encounter (principal); W10.9XXA Fall (on) (from) unspecified stairs and steps, initial encounter; Y92.099 Unspecified place in other non-institutional residence as the place of occurrence of the external cause; Y93.89 Activity, other specified; Y99.9 Unspecified external cause status; Z88.8 Allergy status to other drugs, medicaments and biological substances

== ENCOUNTER → 2019-07-20 | Outpatient (REF) | payer OTHER ==
[~2019-07-20] MED LIST changes: +BACI500O21 TOP
[2019-07-20 14:43] LABS: APPEARANCE, URINE CLEAR (CLEAR); BACTERIA, URINE AUTO NEGATIVE (NEGATIVE); BILIRUBIN, URINE AUTO NEGATIVE (NEGATIVE); BLOOD, URINE BLOOD 1+ (NEGATIVE); COLOR, URINE YELLOW (YELLOW); GLUCOSE, URINE (UA) AUTO NEGATIVE (NEGATIVE); KETONE, URINE AUTO NEGATIVE (NEGATIVE); LEUKOCYTE ESTERASE, URINE AUTO NEGATIVE (NEGATIVE); MUCUS, URINE SMALL (NEGATIVE); NITRITE, URINE AUTO NEGATIVE (NEGATIVE); PROTEIN, URINE AUTO NEGATIVE (NEGATIVE); RBC, URINE AUTO 2 /HPF (0-3); SPECIFIC GRAVITY URINE AUTO 1.017 (1.002-1.035); SQUAMOUS EPITHELIAL CELL UR AU 1 /HPF (0-6); UROBILINOGEN, URINE AUTO 0.2 mg/dL (0.0-2.0); WBC, URINE AUTO 0 /HPF (0-3)
== END ==
LOC: M LAB REF 13:57
PROVIDERS: ATTEND Physician Assistant Medical
DX: N39.0 Urinary tract infection, site not specified (principal)

== ENCOUNTER → 2019-10-05 | Outpatient (REF) | payer OTHER ==
[2019-10-05 17:27] LABS: HCG, SERUM QUALITATIVE NEGATIVE (NEGATIVE)
== END ==
LOC: M PLALAB 15:31
PROVIDERS: ATTEND Advanced Practice Midwife
DX: N91.2 Amenorrhea, unspecified (principal)

== ENCOUNTER → 2020-04-10 | Outpatient (REF) | payer OTHER ==
[2020-04-10 18:15] LABS: APPEARANCE, URINE CLEAR (CLEAR); BACTERIA, URINE AUTO NEGATIVE (NEGATIVE); BILIRUBIN, URINE AUTO NEGATIVE (NEGATIVE); BLOOD, URINE BLOOD NEGATIVE (NEGATIVE); COLOR, URINE YELLOW (YELLOW); GLUCOSE, URINE (UA) AUTO NEGATIVE (NEGATIVE); KETONE, URINE AUTO NEGATIVE (NEGATIVE); LEUKOCYTE ESTERASE, URINE AUTO NEGATIVE (NEGATIVE); MUCUS, URINE SMALL (NEGATIVE); NITRITE, URINE AUTO NEGATIVE (NEGATIVE); PROTEIN, URINE AUTO NEGATIVE (NEGATIVE); RBC, URINE AUTO 0 /HPF (0-3); SPECIFIC GRAVITY URINE AUTO 1.014 (1.002-1.035); SQUAMOUS EPITHELIAL CELL UR AU 1 /HPF (0-6); UROBILINOGEN, URINE AUTO 0.2 mg/dL (0.0-2.0); WBC, URINE AUTO 1 /HPF (0-3)
== END ==
LOC: M LAB REF 17:58
PROVIDERS: ATTEND Physician Assistant Medical
DX: M54.5 Low back pain (principal)

== ENCOUNTER → 2020-04-14 | Outpatient (CLI) | payer SELFPAY | LOC: M LABSMTC 13:36 | PROVIDERS: ATTEND Pediatrics | DX: Z20.828 Contact with and (suspected) exposure to other viral communicable diseases (principal) ==

== ENCOUNTER 2020-05-01 16:00 | Emergency (ER) | payer OTHER, SELFPAY ==
[~2020-05-01] VITALS: Ht 154.9 cm; Wt 80.5 kg
[2020-05-01] MEDS ORDERED: NEUR100C PO (16:09)
[2020-05-01] MEDS ORDERED: CETI10CH PO (16:09)
[2020-05-01] MEDS ORDERED: KETOROLAC 30 MG/ML 1ML VIAL IV ONE (17:45)
[2020-05-01 18:08] LABS: HCG, SERUM QUALITATIVE NEGATIVE (NEGATIVE)
[2020-05-01 18:16] LABS: ALBUMIN 4.2 GM/DL (3.2-5.2); ALT/SGPT 19 U/L (12-78); BILIRUBIN,DIRECT < 0.1 MG/DL (0.0-0.2); BILIRUBIN,TOTAL 0.2 MG/DL (0.2-1.0); BLOOD UREA NITROGEN 16 MG/DL (7-18); CALCIUM LEVEL 9.2 MG/DL (8.5-10.1); CARBON DIOXIDE LEVEL 23 MEQ/L (21-32); CHLORIDE LEVEL 111 MEQ/L (98-107); CREATININE FOR GFR 1.19 MG/DL (0.55-1.30); GLOMERULAR FILTRATION RATE 57.1 (>60); GLUCOSE, FASTING 83 MG/DL (70-100); LIPASE 233 U/L (73-393); POTASSIUM SERUM 4.4 MEQ/L (3.5-5.1); SODIUM LEVEL 141 MEQ/L (136-145); TOTAL PROTEIN 7.8 GM/DL (6.4-8.2)
[2020-05-01 19:09] LABS: BASO # 0.2 10^3/uL (0.0-0.2); BASO % 1.4 % (0.0-1.0); EOS # 0.6 10^3/uL (0.0-0.5); EOS % 5.8 % (0.0-3.0); HEMATOCRIT 33.8 % (36.0-47.0); HEMOGLOBIN 10.7 g/dl (12.0-15.5); LYMPH # 3.4 10^3/uL (1.5-5.0); LYMPH % 30.3 % (24.0-44.0); MEAN CORPUSCULAR HEMOGLOBIN 26.1 pg (27.0-33.0); MEAN CORPUSCULAR HGB CONC 31.7 g/dl (32.0-36.5); MEAN CORPUSCULAR VOLUME 82.4 fl (80.0-96.0); MONO # 0.8 10^3/uL (0.0-0.8); MONO % 6.8 % (0.0-5.0); NEUTROPHILS # 6.2 10^3/uL (1.5-8.5); NEUTROPHILS % 55.4 % (36.0-66.0); PLATELET COUNT, AUTOMATED 292 10^3/uL (150-450); WHITE BLOOD COUNT 11.1 10^3/uL (4.0-10.0)
[2020-05-01] MEDS ORDERED: KETOROLAC 60MG 2ML VIAL IM ONE (19:15)
--- NOTE | 2020-05-01 19:32 | REPVR ---
PROCEDURE INFORMATION: Exam: CT Abdomen And Pelvis Without Contrast Exam date and time: 05/01/2020 6:44 PM Age: 29 years old Clinical indication: Abdominal pain; Flank; Upper; Additional info: Renal colic ? TECHNIQUE: Imaging protocol: Computed tomography of the abdomen and pelvis without contrast. Radiation optimization: All CT scans at this facility use at least one of these dose optimization techniques: automated exposure control; mA and/or kV adjustment per patient size (includes targeted exams where dose is matched to clinical indication); or iterative reconstruction. COMPARISON: CT ABD PELVIS WITH CONTRAST 10/21/2018 6:25 PM FINDINGS: Liver: Normal. No mass. Gallbladder and bile ducts: There has been a cholecystectomy. Pancreas: Normal. No ductal dilation. Spleen: Normal. No splenomegaly. Adrenal glands: Normal. No mass. Kidneys and ureters: Normal. No hydronephrosis. Stomach and bowel: This patient is status post gastric bypass surgery. Appendix: No evidence of appendicitis. Intraperitoneal space: Unremarkable. No free air. No significant fluid collection. Vasculature: Unremarkable. No abdominal aortic aneurysm. Lymph nodes: Unremarkable. No enlarged lymph nodes. Urinary bladder: Unremarkable as visualized. Reproductive: Unremarkable as visualized. Bones/joints: Unremarkable. No acute fracture. Soft tissues: Unremarkable. IMPRESSION: 1. This patient is status post gastric bypass surgery. 2. There has been a cholecystectomy. Electronically signed by: Wong Alicea On 05/01/2020 19:32:09 PM
[2020-05-01] MEDS ORDERED: MACR100C43 PO (19:44)
[2020-05-01 20:00] VITALS: BP 121/86
== END 2020-05-01 20:14 | disposition home or self-care (01) ==
LOC: M ED 16:00
DX: R10.9 Unspecified abdominal pain (principal); R31.9 Hematuria, unspecified; Z87.442 Personal history of urinary calculi; F17.200 Nicotine dependence, unspecified, uncomplicated; Z98.84 Bariatric surgery status; Z88.8 Allergy status to other drugs, medicaments and biological substances
CPT/HCPCS: 36415; 74176; 80048; 80076; 81001; 83690; 84703; 85025; 96372; 99284; J1885

== ENCOUNTER → 2020-05-23 | Outpatient (REF) | payer OTHER ==
[~2020-05-23] MED LIST changes: +CETI10CH PO; +NEUR100C PO
== END ==
LOC: M SFHCWAGY 17:12
PROVIDERS: ATTEND Advanced Practice Midwife
DX: Z12.4 Encounter for screening for malignant neoplasm of cervix (principal)

== ENCOUNTER → 2020-06-23 | Outpatient (CLI) | payer OTHER ==
--- NOTE | 2020-06-23 11:33 | REP ---
INDICATION: R10.2 PELVIC PAIN,N92.0 MENORRHAGIA. COMPARISON: Comparison CT study 05/01/2020.. TECHNIQUE: Transabdominal and transvaginal scanning were performed. FINDINGS: Uterine dimensions are normal at 8.8 x 3.7 x 5.1 cm. Endometrial echo is is 1.8 cm thick and centrally placed. No free fluid is seen in the cul-de-sac. Visualized bladder hodges are smooth. Prior scar is visualized in the lower uterine segment. The right ovary has dimensions of 2.8 x 1.8 x 1.6 cm. The left ovary dimensions are normal as well at 3.1 x 2.3 x 2.2 cm. There is a 2.0 x 1.9 x 2.1 cm follicle cyst in the left ovary. Doppler flow is present in both ovaries. IMPRESSION: Normal pelvic sonography. <Electronically signed by Bolivar Diop > 06/23/20 1120
== END ==
LOC: M WHC 10:27
PROVIDERS: ATTEND Advanced Practice Midwife
DX: R10.2 Pelvic and perineal pain (principal); N92.0 Excessive and frequent menstruation with regular cycle

== ENCOUNTER → 2020-08-03 | Outpatient (REF) | payer OTHER ==
[2020-08-03 14:08] LABS: APPEARANCE, URINE TURBID (CLEAR); BACTERIA, URINE AUTO 1+ (NEGATIVE); BILIRUBIN, URINE AUTO NEGATIVE (NEGATIVE); BLOOD, URINE BLOOD 2+ (NEGATIVE); COLOR, URINE AMBER (YELLOW); GLUCOSE, URINE (UA) AUTO NEGATIVE (NEGATIVE); KETONE, URINE AUTO NEGATIVE (NEGATIVE); LEUKOCYTE ESTERASE, URINE AUTO TRACE (NEGATIVE); MUCUS, URINE SMALL (NEGATIVE); NITRITE, URINE AUTO NEGATIVE (NEGATIVE); PROTEIN, URINE AUTO NEGATIVE (NEGATIVE); RBC, URINE AUTO 5 /HPF (0-3); SPECIFIC GRAVITY URINE AUTO 1.021 (1.002-1.035); SQUAMOUS EPITHELIAL CELL UR AU 28 /HPF (0-6); UROBILINOGEN, URINE AUTO 0.2 mg/dL (0.0-2.0); WBC, URINE AUTO 5 /HPF (0-3)
[2020-08-03 14:41] LABS: ALBUMIN 3.7 GM/DL (3.2-5.2); ALT/SGPT 16 U/L (12-78); BILIRUBIN,TOTAL 0.2 MG/DL (0.2-1.0); BLOOD UREA NITROGEN 13 MG/DL (7-18); CALCIUM LEVEL 9.5 MG/DL (8.5-10.1); CARBON DIOXIDE LEVEL 30 MEQ/L (21-32); CHLORIDE LEVEL 109 MEQ/L (98-107); CREATININE FOR GFR 0.89 MG/DL (0.55-1.30); FREE T4 0.83 NG/DL (0.76-1.46); GLOMERULAR FILTRATION RATE > 60.0 (>60); GLUCOSE, FASTING 80 MG/DL (70-100); POTASSIUM SERUM 4.4 MEQ/L (3.5-5.1); SODIUM LEVEL 142 MEQ/L (136-145); TOTAL PROTEIN 7.3 GM/DL (6.4-8.2)
[2020-08-03 17:02] LABS: TOTAL 25(OH) VITAMIN D 22.8 NG/ML (30.0-100.0)
== END ==
LOC: M SFHCPLAZ 09:16
PROVIDERS: ATTEND Nurse Practitioner Family
DX: F41.1 Generalized anxiety disorder (principal); M79.7 Fibromyalgia; E55.9 Vitamin D deficiency, unspecified

== ENCOUNTER 2020-08-15 04:14 | Emergency (ER) | payer OTHER ==
[~2020-08-15] VITALS: Ht 154.9 cm; Wt 80.5 kg
[~2020-08-15 04:14] MED LIST changes: +CETI-24; +GABA-845; +LEXA5TAB13; +VALA500T5
[2020-08-15 05:02] LABS: HEMATOCRIT 31.5 % (36.0-47.0); HEMOGLOBIN 9.9 g/dl (12.0-15.5); MEAN CORPUSCULAR HEMOGLOBIN 26.3 pg (27.0-33.0); MEAN CORPUSCULAR HGB CONC 31.4 g/dl (32.0-36.5); MEAN CORPUSCULAR VOLUME 83.8 fl (80.0-96.0); PLATELET COUNT, AUTOMATED 299 10^3/uL (150-450); RED BLOOD COUNT 3.76 10^6/uL (4.00-5.40); WHITE BLOOD COUNT 9.7 10^3/uL (4.0-10.0)
[2020-08-15 05:35] LABS: ALBUMIN 3.4 GM/DL (3.2-5.2); ALT/SGPT 18 U/L (12-78); BILIRUBIN,TOTAL 0.2 MG/DL (0.2-1.0); BLOOD UREA NITROGEN 13 MG/DL (7-18); CALCIUM LEVEL 8.3 MG/DL (8.5-10.1); CARBON DIOXIDE LEVEL 22 MEQ/L (21-32); CHLORIDE LEVEL 113 MEQ/L (98-107); CREATININE FOR GFR 0.92 MG/DL (0.55-1.30); GLOMERULAR FILTRATION RATE > 60.0 (>60); GLUCOSE, FASTING 95 MG/DL (70-100); SODIUM LEVEL 142 MEQ/L (136-145); TOTAL PROTEIN 7.1 GM/DL (6.4-8.2)
[2020-08-15] MEDS ORDERED: ISOVUE-370 76% 100ML VIAL As Ordered ONE (05:53)
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
[2020-08-15] MEDS ORDERED: KETOROLAC TROMETHAMINE 10 MG TAB PO ONE (07:35)
[2020-08-15] MEDS ORDERED: KETO10TAB PO (07:37)
[2020-08-15 07:54] VITALS: BP 125/76
== END 2020-08-15 08:04 | disposition home or self-care (01) ==
LOC: M ED 04:14
DX: S06.0X0A Concussion without loss of consciousness, initial encounter (principal); S27.321A Contusion of lung, unilateral, initial encounter; N28.1 Cyst of kidney, acquired; N83.201 Unspecified ovarian cyst, right side; Y04.8XXA Assault by other bodily force, initial encounter; Y92.009 Unspecified place in unspecified non-institutional (private) residence as the place of occurrence of the external cause; Y93.9 Activity, unspecified; Y99.9 Unspecified external cause status; M79.7 Fibromyalgia; Z98.84 Bariatric surgery status; F17.290 Nicotine dependence, other tobacco product, uncomplicated; F12.10 Cannabis abuse, uncomplicated; Z79.899 Other long term (current) drug therapy; Z88.8 Allergy status to other drugs, medicaments and biological substances
CPT/HCPCS: 70450; 71260; 72125; 74177; 80053; 84702; 85027; 99284; Q9967